=== PATIENT | male | born 1970 | race African-American/Black ===

== ENCOUNTER 2017-06-24 14:28 | Inpatient (IN) | payer OTHER ==
[2017-06-24 15:13] VITALS: BMI 21.6
--- NOTE | 2017-06-24 20:51 | HP ---
CIWA Score - CIWA Score Nausea/Vomitin Muscle Tremors: 3 Anxiety: 3 Agitation: 2 Paroxysmal Sweats: 2 Orientation: 0-Oriented Tacttile Disturbances: 2-Mild Itch/Numbness/Burn Auditory Disturbances: 2-Mild Harshness/Frighten Visual Disturbances: 2-Mild Sensitivity Headache: 3-Moderate CIWA-Ar Total Score: 22 Admission ROS BHS - HPI Chief Complaint: DEPENDENT ON ETOH, COCAINE AND MARIJUANA Allergies/Adverse Reactions: Allergies Allergy/AdvReac Type Severity Reaction Status Date / Time No Known Allergies Allergy Verified 06/24/17 20:15 History of Present Illness: THE PT. IS REQUESTING ADMISSION TO THE DETOX UNIT AND CAME FOR H AND PE Exam Limitations: No Limitations - Ebola screening Have you traveled outside of the country in the last 21 days: No (N) Have you had contact with anyone from an Ebola affected area: No Have you been sick,other than usual withdrawal symptoms: No Do you have a fever: No - Review of Systems Constitutional: Malaise, Weakness, Unexplained wgt Loss EENT: reports: See HPI Respiratory: reports: See HPI Cardiac: reports: See HPI, Syncope GI: reports: See HPI, Nausea, Vomiting, Abdominal cramping : reports: No Symptoms Reported, See HPI Musculoskeletal: reports: See HPI, Muscle Pain, Muscle Weakness Integumentary: reports: See HPI, Sweating Neuro: reports: See HPI, Headache, Tremors, Weakness Endocrine: reports: See HPI Hematology: reports: See HPI Psychiatric: reports: Judgement Intact, Orientated x3, Anxious, Depressed Patient History - Patient Medical History Hx Human Immunodeficiency Virus (HIV): Yes (IN 1999) Hx Hepatitis C: No Hx Depression: Yes (AND ANXIETY) Hx Suicide Attempt: Yes (X 2 (1985 AND 1997)) - Patient Surgical History Past Surgical History: Yes Hx Lung Surgery: Yes (RT. LUNG WAS REMOVED IN 2014 SEC. TO ASPERGILLOSIS) - Smoking Cessation Smoking history: Current every day smoker Have you smoked in the past 12 months: Yes Aproximately how many cigarettes per day: 1 Hx Chewing Tobacco Use: No Initiated information on smoking cessation: Yes 'Breaking Loose' booklet given: 06/24/17 - Substance & Tx. History Hx Alcohol Use: Yes Hx Substance Use: Yes Substance Use Type: Alcohol, Cocaine, Marijuana Hx Substance Use Treatment: Yes - Substances Abused Alcohol Route: Oral Frequency: Daily Amount used: LIQUOR 1-2 P/D AND BEER 6 CANS/D Age of first use: 11 Date of Last Use: 06/24/17 Cocaine Route: Smoking Frequency: Daily Amount used: 2 GRAMS/D Age of first use: 13 Date of Last Use: 06/24/17 Marijuana/Hashish Route: Smoking Frequency: Daily Amount used: 1/2 OZ/D Age of first use: 11 Date of Last Use: 06/24/17 Family Disease History - Family Disease History Family Disease History: Heart Disease: Mother (PPM PLACED; ETOH AND DRUG DEPENDENT), Other: Father (ETOH AND DRUGS - ) Admission Physical Exam S - Vital Signs Vital Signs: Vital Signs - 24 hr 06/24/17 15:08 Temperature 97.2 F L Pulse Rate 75 Respiratory 16 Rate Blood Pressure 133/90 - Physical General Appearance: Yes: No Apparent Distress, Appropriately Dressed, Thin, Tremorous, Anxious HEENTM: Yes: Hearing grossly Normal, Normocephalic, Normal Voice, HERIBERTO, Pharynx Normal Respiratory: Yes: Chest Non-Tender, No Respiratory Distress, No Accessory Muscle Use Neck: Yes: No masses,lesions,Nodules, Supple, Trachea in good position Breast: Yes: Breast Exam Deferred, Axillae without masses Cardiology: Yes: Regular Rhythm, Regular Rate, S1, S2 Abdominal: Yes: Normal Bowel Sounds, Non Tender, Flat Back: Yes: Normal Inspection Musculoskeletal: Yes: full range of Motion, Gait Steady, Muscle Pain, Muscle weakness Extremities: Yes: Normal Capillary Refill, Normal Range of Motion, Non-Tender, Tremors Neurological: Yes: director translation II-XII NML intact, Fully Oriented, Alert, Motor Strength 5/5, Normal Response, Depressed Affect Integumentary: Yes: Normal Color, Warm, Moist Lymphatic: Yes: Within Normal Limits - Addiitonal Findings: LEFT SIDE OF THE LUNG: VESICULAR BREATH SOUNDS, NO RALES, NO RHONCHI, NO WHEEZING++ RT. SIDE OF THE LUNG: VESICULAR BREATH SOUNDS HEARD ON THE BACK ONLY+ (HAD SURGERY AND PART OF THE LUNG WAS REMOVED) - Diagnostic (1) EtOH dependence Current Visit: Yes Status: Chronic Qualifiers: Substance use status: uncomplicated Qualified Code(s): F10.20 - Alcohol dependence, uncomplicated (2) Cocaine dependence Current Visit: Yes Status: Chronic Qualifiers: Substance use status: uncomplicated Qualified Code(s): F14.20 - Cocaine dependence, uncomplicated (3) Marijuana dependence Current Visit: Yes Status: Chronic (4) Anxiety and depression Current Visit: Yes Status: Chronic (5) AIDS Current Visit: Yes Status: Chronic (6) H/O pneumonectomy Current Visit: Yes Status: Chronic Cleared for Admission [facility] - Detox or Rehab [facility] Level of Care: Medically Managed Detox Regimen/Protocol: Librium S Breath Alcohol Content Breath Alcohol Content: 0 Urine Drug Screen - Results Drug Screen Negative: No Urine Drug Screen Results: THC-Marijuana, ALAN-Cocaine
[2017-06-24] MEDS ORDERED: MAGNESIUM HYDROX 2400MG/30ML ORAL SUSPENSION 30 ML CUP PO PRN (21:07)
[2017-06-24] MEDS ORDERED: IBUPROFEN 400 MG TABLET (FP) PO PRN (21:07)
[2017-06-24] MEDS ORDERED: chlordiazePOXIDE HCL 25 MG CAPSULE PO PRN (21:07)
[2017-06-24] MEDS ORDERED: LOPERAMIDE HCL 2 MG CAPSULE PO PRN (21:07)
[2017-06-24] MEDS ORDERED: MENTHOL/PHENOL 1 EACH UD MM PRN (21:07)
[2017-06-24] MEDS ORDERED: hydrOXYzine PAMOATE 25 MG CAPSULE (FP) PO PRN (21:07)
[2017-06-24] MEDS ORDERED: P-EPHED 60MG/TRIPROLIDI 2.5MG TABLET PO PRN (21:07)
[2017-06-24] MEDS ORDERED: chlordiazePOXIDE HCL 25 MG CAPSULE PO ONE (21:07)
[2017-06-24] MEDS ORDERED: MAGNESIUM CITRATE 300 ML BOTTLE PO PRN (21:07)
[2017-06-24] MEDS ORDERED: guaiFENesin/D-METHORPHAN HB 10 ML UNIT-DOSE CUPS PO PRN (21:07)
[2017-06-24] MEDS ORDERED: ACETAMINOPHEN 325 MG TABLET (FP) PO PRN (21:07)
[2017-06-24] MEDS ORDERED: MAG HYDROX/AL HYDROX/SIMETH 30 ML UNIT-DOSE CUP PO PRN (21:07)
[2017-06-24] MEDS ORDERED: NICOTINE POLACRILEX 2 MG GUM BC PRN (21:07)
[2017-06-24] MEDS ORDERED: EMTRICITABINE/TENOFOV ALAFENAM (DESCOVY) TABLET PO SCH (21:15)
[2017-06-24] MEDS ORDERED: MELATONIN 5 MG TABLETS PO PRN (22:00)
[2017-06-24] MEDS: RALTEGRAVIR POTASSIUM 400 MG TAB PO SCH (23:35)
[2017-06-24] MEDS: THIAMINE HCL 100 MG TABLET (FP) PO SCH (23:35)
[2017-06-24] MEDS: chlordiazePOXIDE HCL 25 MG CAPSULE PO SCH (23:39)
[2017-06-24] MEDS: EMTRICITABINE 200MG/TENOFOVIR 300MG PO SCH (23:39)
[2017-06-25 01:21] LABS: URINE APPEARANCE TURBID; URINE BILIRUBIN NEGATIVE (<2.0 mg/dL); URINE BLOOD NEGATIVE (NEGATIVE); URINE COLOR DKYELLOW; URINE GLUCOSE (UA) NEGATIVE (NEGATIVE); URINE KETONE NEGATIVE (NEGATIVE); URINE LEUK ESTERASE NEGATIVE (NEGATIVE); URINE NITRITE NEGATIVE (NEGATIVE); URINE PROTEIN NEGATIVE (NEGATIVE); URINE UROBILINOGEN NEGATIVE mg/dL (0.2-1.0)
[2017-06-25] MEDS: chlordiazePOXIDE HCL 25 MG CAPSULE PO SCH (06:34)
[2017-06-25] MEDS ORDERED: diazePAM 5 MG TABLET PO PRN (09:38)
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
[2017-06-25] MEDS: PRENATAL VITAMINS W/ FOLIC ACID TABLET (FP) PO SCH (10:16)
[2017-06-25] MEDS: diazePAM 5 MG TABLET PO SCH ×3 (10:16→22:08)
[2017-06-25] MEDS: RALTEGRAVIR POTASSIUM 400 MG TAB PO SCH ×2 (10:16→22:08)
[2017-06-25] MEDS: EMTRICITABINE 200MG/TENOFOVIR 300MG PO SCH (10:16)
[2017-06-25 10:42] LABS: HEMATOCRIT 37.6 % (35.4-49); HEMOGLOBIN 12.6 GM/dL (11.7-16.9); MCH 32.1 pg (25.7-33.7); MCHC 33.4 g/dl (32.0-35.9); MEAN CELL VOLUME 96.1 fl (80-96); PLATELET COUNT 203 K/MM3 (134-434); RBC 3.92 M/mm3 (4.00-5.60); RDW 13.9 % (11.9-15.9); WHITE BLOOD COUNT 4.1 K/mm3 (4.0-10.0)
[2017-06-25 10:55] LABS: CHLORIDE 106 mmol/L (98-107); POTASSIUM 4.2 mmol/L (3.5-5.1); SODIUM 140 mmol/L (136-145)
[2017-06-25 11:17] LABS: ALBUMIN 2.7 g/dl (3.4-5.0); ALK PHOS 110 U/L (45-117); ANION GAP 5 (8-16); BILIRUBIN,TOTAL 0.4 mg/dL (0.2-1.0); BLOOD UREA NITROGEN 14 mg/dL (7-18); CALCIUM 8.1 mg/dL (8.5-10.1); CO2 29 mmol/L (21-32); GLUCOSE,RANDOM 77 mg/dL (74-106); SGOT/AST 39 U/L (15-37); SGPT/ALT 55 U/L (12-78); TOT PROT 6.4 g/dl (6.4-8.2)
[2017-06-25] MEDS: SERTRALINE HCL 50 MG TABLET (FP) PO SCH (11:34)
[2017-06-25] MEDS ORDERED: PANTOPRAZOLE 40 MG TABLET (FP) PO ONE (15:00)
--- NOTE | 2017-06-25 18:04 | PN ---
[facility] CIWA - CIWA Score Nausea/Vomitin-No Nausea/No Vomiting Muscle Tremors: 2 Anxiety: 4-Mod. Anxious/Guarded Agitation: 5 Paroxysmal Sweats: 3 Orientation: 0-Oriented Tacttile Disturbances: 2-Mild Itch/Numbness/Burn Auditory Disturbances: 1-Very Mild Visual Disturbances: 0-None Headache: 0-None Present CIWA-Ar Total Score: 17 S Progress Note (SOAP) Subjective: Anxious, Sweating, Tremors. Objective: PATIENT A & O X 3, OBSERVED AMBULATING ON UNIT. NO ACUTE DISTRESS. 06/25/17 18:01 Vital Signs Temperature 97.6 F 06/25/17 17:13 Pulse Rate 81 06/25/17 17:13 Respiratory Rate 16 06/25/17 17:13 Blood Pressure 139/83 06/25/17 17:13 O2 Sat by Pulse Oximetry (%) Laboratory Tests 06/24/17 06/25/17 06/25/17 22:21 07:50 07:50 WBC 4.1 RBC 3.92 L Hgb 12.6 Hct 37.6 MCV 96.1 H MCH 32.1 MCHC 33.4 RDW 13.9 Plt Count 203 MPV 8.0 Sodium 140 Potassium 4.2 Chloride 106 Carbon Dioxide 29 Anion Gap 5 L BUN 14 Creatinine 1.0 Creat Clearance w eGFR > 60 Random Glucose 77 Calcium 8.1 L Total Bilirubin 0.4 AST 39 H ALT 55 Alkaline Phosphatase 110 Total Protein 6.4 Albumin 2.7 L Urine Color Dkyellow Urine Appearance Turbid Urine pH 6.0 Ur Specific [place] 1.018 Urine Protein Negative Urine Glucose (UA) Negative Urine Ketones Negative Urine Blood Negative Urine Nitrite Negative Urine Bilirubin Negative Urine Urobilinogen Negative Ur Leukocyte Esterase Negative RPR Titer 06/25/17 07:50 WBC RBC Hgb Hct MCV MCH MCHC RDW Plt Count MPV Sodium Potassium Chloride Carbon Dioxide Anion Gap BUN Creatinine Creat Clearance w eGFR Random Glucose Calcium Total Bilirubin AST ALT Alkaline Phosphatase Total Protein Albumin Urine Color Urine Appearance Urine pH Ur Specific [place] Urine Protein Urine Glucose (UA) Urine Ketones Urine Blood Urine Nitrite Urine Bilirubin Urine Urobilinogen Ur Leukocyte Esterase RPR Titer Nonreactive LABS NOTED. Assessment: 06/25/17 18:02 WITHDRAWAL SYMPTOMS. Plan: CONTINUE DETOX. INCREASE DAILY PO FLUID INTAKE. PATIENT REPORTS SIGNIFICANT DIFFICULTY IN SWALLOWING / DIGESTING LIBRUIM. AT PATIENT'S REQUEST, DETOX MEDICATION REGIMEN CHANGED TO VALIUM DETOX REGIMEN.
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
[2017-06-25] MEDS ORDERED: PATIENT'S OWN MEDICATION (NON-FORMULARY) (Zolpidem Tartrate [Ambien] 10 MG) PO SCH (22:00)
[2017-06-25] MEDS: THIAMINE HCL 100 MG TABLET (FP) PO SCH (22:08)
[2017-06-25] MEDS: QUEtiapine FUMARATE 100 MG TABLET (FP) PO SCH (22:08)
[2017-06-25] MEDS: ZOLPIDEM TARTRATE 10 MG TABLET (PARK CARE ONLY) PO PRN (22:08)
[2017-06-25] MEDS ORDERED: chlordiazePOXIDE HCL 25 MG CAPSULE PO SCH (23:00)
[2017-06-26] MEDS: diazePAM 5 MG TABLET PO SCH ×3 (07:05→22:06)
[2017-06-26] MEDS: PANTOPRAZOLE 40 MG TABLET (FP) PO SCH (07:05)
[2017-06-26] MEDS: RALTEGRAVIR POTASSIUM 400 MG TAB PO SCH ×2 (10:01→22:06)
[2017-06-26] MEDS: SERTRALINE HCL 50 MG TABLET (FP) PO SCH (10:01)
[2017-06-26] MEDS: EMTRICITABINE 200MG/TENOFOVIR 300MG PO SCH (10:01)
[2017-06-26] MEDS: PRENATAL VITAMINS W/ FOLIC ACID TABLET (FP) PO SCH (10:02)
--- NOTE | 2017-06-26 14:38 | PN ---
[facility] CIWA - CIWA Score Nausea/Vomitin Muscle Tremors: 3 Anxiety: 3 Agitation: 3 Paroxysmal Sweats: 3 Orientation: 0-Oriented Tacttile Disturbances: 1-Very Mild Itch/Numbness Auditory Disturbances: 0-None Visual Disturbances: 0-None Headache: 1-Very Mild CIWA-Ar Total Score: 17 [facility] Progress Note (SOAP) Subjective: Diarrhea, sweating, anxious Objective: 06/26/17 14:36 Last Vital Signs Temp Pulse Resp BP Pulse Ox 97.2 F L 81 18 141/84 06/26/17 13:39 06/26/17 13:39 06/26/17 13:39 06/26/17 13:39 Laboratory Tests 06/24/17 06/25/17 06/25/17 22:21 07:50 07:50 WBC 4.1 RBC 3.92 L Hgb 12.6 Hct 37.6 MCV 96.1 H MCH 32.1 MCHC 33.4 RDW 13.9 Plt Count 203 MPV 8.0 Sodium 140 Potassium 4.2 Chloride 106 Carbon Dioxide 29 Anion Gap 5 L BUN 14 Creatinine 1.0 Creat Clearance w eGFR > 60 Random Glucose 77 Calcium 8.1 L Total Bilirubin 0.4 AST 39 H ALT 55 Alkaline Phosphatase 110 Total Protein 6.4 Albumin 2.7 L Urine Color Dkyellow Urine Appearance Turbid Urine pH 6.0 Ur Specific [place] 1.018 Urine Protein Negative Urine Glucose (UA) Negative Urine Ketones Negative Urine Blood Negative Urine Nitrite Negative Urine Bilirubin Negative Urine Urobilinogen Negative Ur Leukocyte Esterase Negative RPR Titer 06/25/17 07:50 WBC RBC Hgb Hct MCV MCH MCHC RDW Plt Count MPV Sodium Potassium Chloride Carbon Dioxide Anion Gap BUN Creatinine Creat Clearance w eGFR Random Glucose Calcium Total Bilirubin AST ALT Alkaline Phosphatase Total Protein Albumin Urine Color Urine Appearance Urine pH Ur Specific [place] Urine Protein Urine Glucose (UA) Urine Ketones Urine Blood Urine Nitrite Urine Bilirubin Urine Urobilinogen Ur Leukocyte Esterase RPR Titer Nonreactive Labs reviewed Assessment: 06/26/17 14:37 Withdrawal symptoms Plan: Continue detox Encouraged PO hydration (water)
[2017-06-26] MEDS: ZOLPIDEM TARTRATE 10 MG TABLET (PARK CARE ONLY) PO PRN (22:06)
[2017-06-26] MEDS: QUEtiapine FUMARATE 100 MG TABLET (FP) PO SCH (22:06)
[2017-06-26] MEDS: THIAMINE HCL 100 MG TABLET (FP) PO SCH (22:06)
[2017-06-26] MEDS ORDERED: chlordiazePOXIDE 5 MG CAPSULE PO SCH (23:00)
[2017-06-27] MEDS: PANTOPRAZOLE 40 MG TABLET (FP) PO SCH (05:57)
--- NOTE | 2017-06-27 09:59 | PN ---
[facility] Progress Note (SOAP) Subjective: C/O ANXIETY,AGITATION, HEADACHE,FATIGUE. Objective: 06/27/17 09:58 Vital Signs 06/27/17 06/27/17 06/27/17 03:30 06:03 06:30 Temperature 96 F L Pulse Rate 72 Respiratory 18 18 18 Rate Blood Pressure 119/75 06/27/17 09:16 Temperature 97.0 F L Pulse Rate 79 Respiratory 18 Rate Blood Pressure 133/89 Laboratory Tests 06/24/17 06/25/17 06/25/17 22:21 07:50 07:50 WBC 4.1 RBC 3.92 L Hgb 12.6 Hct 37.6 MCV 96.1 H MCH 32.1 MCHC 33.4 RDW 13.9 Plt Count 203 MPV 8.0 Sodium 140 Potassium 4.2 Chloride 106 Carbon Dioxide 29 Anion Gap 5 L BUN 14 Creatinine 1.0 Creat Clearance w eGFR > 60 Random Glucose 77 Calcium 8.1 L Total Bilirubin 0.4 AST 39 H ALT 55 Alkaline Phosphatase 110 Total Protein 6.4 Albumin 2.7 L Urine Color Dkyellow Urine Appearance Turbid Urine pH 6.0 Ur Specific [place] 1.018 Urine Protein Negative Urine Glucose (UA) Negative Urine Ketones Negative Urine Blood Negative Urine Nitrite Negative Urine Bilirubin Negative Urine Urobilinogen Negative Ur Leukocyte Esterase Negative RPR Titer 06/25/17 07:50 WBC RBC Hgb Hct MCV MCH MCHC RDW Plt Count MPV Sodium Potassium Chloride Carbon Dioxide Anion Gap BUN Creatinine Creat Clearance w eGFR Random Glucose Calcium Total Bilirubin AST ALT Alkaline Phosphatase Total Protein Albumin Urine Color Urine Appearance Urine pH Ur Specific [place] Urine Protein Urine Glucose (UA) Urine Ketones Urine Blood Urine Nitrite Urine Bilirubin Urine Urobilinogen Ur Leukocyte Esterase RPR Titer Nonreactive Assessment: 06/27/17 09:58 WITHDRAWAL SX Plan: CONTINUE DETOX INCREASE PO FLUIDS
[2017-06-27] MEDS: RALTEGRAVIR POTASSIUM 400 MG TAB PO SCH ×2 (10:06→22:02)
[2017-06-27] MEDS: PRENATAL VITAMINS W/ FOLIC ACID TABLET (FP) PO SCH (10:06)
[2017-06-27] MEDS: diazePAM 5 MG TABLET PO SCH ×2 (10:06→22:03)
[2017-06-27] MEDS: SERTRALINE HCL 50 MG TABLET (FP) PO SCH (10:06)
[2017-06-27] MEDS: EMTRICITABINE 200MG/TENOFOVIR 300MG PO SCH (10:06)
[2017-06-27] MEDS: ZOLPIDEM TARTRATE 10 MG TABLET (PARK CARE ONLY) PO PRN (22:02)
[2017-06-27] MEDS: QUEtiapine FUMARATE 100 MG TABLET (FP) PO SCH (22:02)
[2017-06-27] MEDS: THIAMINE HCL 100 MG TABLET (FP) PO SCH (22:02)
[2017-06-27] MEDS ORDERED: chlordiazePOXIDE HCL 10 MG CAPSULE PO SCH (23:00)
--- NOTE | 2017-06-28 00:51 | EKG ---
Test Reason : Blood Pressure : / mmHG Vent. Rate : 080 BPM Atrial Rate : 080 BPM P-R Int : 164 ms QRS Dur : 080 ms QT Int : 398 ms P-R-T Axes : 052 058 049 degrees QTc Int : 459 ms NORMAL SINUS RHYTHM NORMAL ECG NO PREVIOUS ECGS AVAILABLE Confirmed by WAGNER WILLIS MD ([id number]) on 06/28/2017 12:51:25 AM Referred By: Confirmed By:WAGNER WILLIS MD
[2017-06-28] MEDS: PANTOPRAZOLE 40 MG TABLET (FP) PO SCH (05:52)
[2017-06-28] MEDS ORDERED: diazePAM 5 MG TABLET PO SCH (10:00)
--- NOTE | 2017-06-28 10:08 | PN ---
S Progress Note (SOAP) Subjective: DETOX COMPLETED. ALERT O X 3. NAD. PT REFERRED TO REHAB [address] [place] [address] TODAY. REPORTS PRIMARY CARE WITH DR. MOTA AT [facility]/[address] [place] [address]. Objective: 06/28/17 10:06 Last Vital Signs Temp Pulse Resp BP Pulse Ox 96.7 F L 74 18 101/72 06/28/17 06:17 06/28/17 06:17 06/28/17 06:17 06/28/17 06:17 Laboratory Tests 06/24/17 06/25/17 06/25/17 22:21 07:50 07:50 WBC 4.1 RBC 3.92 L Hgb 12.6 Hct 37.6 MCV 96.1 H MCH 32.1 MCHC 33.4 RDW 13.9 Plt Count 203 MPV 8.0 Sodium 140 Potassium 4.2 Chloride 106 Carbon Dioxide 29 Anion Gap 5 L BUN 14 Creatinine 1.0 Creat Clearance w eGFR > 60 Random Glucose 77 Calcium 8.1 L Total Bilirubin 0.4 AST 39 H ALT 55 Alkaline Phosphatase 110 Total Protein 6.4 Albumin 2.7 L Urine Color Dkyellow Urine Appearance Turbid Urine pH 6.0 Ur Specific [place] 1.018 Urine Protein Negative Urine Glucose (UA) Negative Urine Ketones Negative Urine Blood Negative Urine Nitrite Negative Urine Bilirubin Negative Urine Urobilinogen Negative Ur Leukocyte Esterase Negative RPR Titer 06/25/17 07:50 WBC RBC Hgb Hct MCV MCH MCHC RDW Plt Count MPV Sodium Potassium Chloride Carbon Dioxide Anion Gap BUN Creatinine Creat Clearance w eGFR Random Glucose Calcium Total Bilirubin AST ALT Alkaline Phosphatase Total Protein Albumin Urine Color Urine Appearance Urine pH Ur Specific [place] Urine Protein Urine Glucose (UA) Urine Ketones Urine Blood Urine Nitrite Urine Bilirubin Urine Urobilinogen Ur Leukocyte Esterase RPR Titer Nonreactive Assessment: 06/28/17 10:06 MEDICALLY STABLE Plan: D/C PT TODAY TO REHAB.
--- NOTE | 2017-06-28 10:13 | DS ---
[facility] Detox Discharge Summary Admission Date: 06/24/17 Discharge Date: 06/28/17 - History Present History: Alcohol Dependence, Cannabis Dependence, Cocaine Dependence Additional Comments: DETOX COMPLETED. ALERT O X 3. NAD. PT REPORTS PRIMARY CARE WITH SVETLANA DIAMOND AT [facility]/[address] [place]. PT TO CONTINUE AFTERCARE ON [facility] TODAY. Pertinent Past History: PLEASE SEE DX BELOW - Physical Exam Results Vital Signs: Vital Signs Temperature 96.7 F L 06/28/17 06:17 Pulse Rate 74 06/28/17 06:17 Respiratory Rate 18 06/28/17 06:17 Blood Pressure 101/72 06/28/17 06:17 O2 Sat by Pulse Oximetry (%) Pertinent Admission Physical Exam Findings: WITHDRAWAL SX Vital Signs 06/28/17 06/28/17 03:30 06:17 Temperature 96.7 F L Pulse Rate 74 Respiratory 18 18 Rate Blood Pressure 101/72 Laboratory Tests 06/24/17 06/25/17 06/25/17 22:21 07:50 07:50 WBC 4.1 RBC 3.92 L Hgb 12.6 Hct 37.6 MCV 96.1 H MCH 32.1 MCHC 33.4 RDW 13.9 Plt Count 203 MPV 8.0 Sodium 140 Potassium 4.2 Chloride 106 Carbon Dioxide 29 Anion Gap 5 L BUN 14 Creatinine 1.0 Creat Clearance w eGFR > 60 Random Glucose 77 Calcium 8.1 L Total Bilirubin 0.4 AST 39 H ALT 55 Alkaline Phosphatase 110 Total Protein 6.4 Albumin 2.7 L Urine Color Dkyellow Urine Appearance Turbid Urine pH 6.0 Ur Specific [place] 1.018 Urine Protein Negative Urine Glucose (UA) Negative Urine Ketones Negative Urine Blood Negative Urine Nitrite Negative Urine Bilirubin Negative Urine Urobilinogen Negative Ur Leukocyte Esterase Negative RPR Titer 06/25/17 07:50 WBC RBC Hgb Hct MCV MCH MCHC RDW Plt Count MPV Sodium Potassium Chloride Carbon Dioxide Anion Gap BUN Creatinine Creat Clearance w eGFR Random Glucose Calcium Total Bilirubin AST ALT Alkaline Phosphatase Total Protein Albumin Urine Color Urine Appearance Urine pH Ur Specific [place] Urine Protein Urine Glucose (UA) Urine Ketones Urine Blood Urine Nitrite Urine Bilirubin Urine Urobilinogen Ur Leukocyte Esterase RPR Titer Nonreactive - Treatment Hospital Course: Detox Protocol Followed, Detoxed Safely, Responded well, Discharged Condition Good, Rehab Referral Accepted Patient has Accepted a Rehab Referral to: [facility] - Medication Discharge Medications: Ambulatory Orders Emtricitabine/Tenofov Alafenam [Descovy 200-25 mg Tablet (Nf)] 1 each PO DAILY 06/24/17 Emtricitabine/Tenofovir [Truvada] 1 tab PO DAILY 06/24/17 Quetiapine Fumarate [Seroquel -] 200 mg PO HS 06/24/17 Raltegravir [Isentress -] 400 mg PO DAILY 06/24/17 Sertraline HCl [Zoloft -] 50 mg PO DAILY 06/24/17 Zolpidem Tartrate [Ambien] 10 mg PO HS 06/24/17 Quetiapine Fumarate [Seroquel] 100 mg PO HS #30 tablet 06/28/17 Sertraline HCl [Zoloft -] 50 mg PO DAILY #30 tablet 06/28/17 - Diagnosis (1) Alcohol dependence with uncomplicated withdrawal Current Visit: Yes Status: Acute (2) GERD (gastroesophageal reflux disease) Current Visit: Yes Status: Chronic Qualifiers: Esophagitis presence: esophagitis presence not specified Qualified Code(s) : K21.9 - Gastro-esophageal reflux disease without esophagitis (3) AIDS Current Visit: Yes Status: Chronic (4) Nicotine dependence Current Visit: Yes Status: Acute Qualifiers: Nicotine product type: cigarettes Substance use status: in withdrawal Qualified Code(s): F17.213 - Nicotine dependence, cigarettes, with withdrawal (5) Cocaine dependence Current Visit: Yes Status: Acute Qualifiers: Substance use status: uncomplicated Qualified Code(s): F14.20 - Cocaine dependence, uncomplicated (6) Cannabis dependence, uncomplicated Current Visit: Yes Status: Acute - AMA Did Patient Leave Against Medical Advice: No
[2017-06-28] MEDS: PRENATAL VITAMINS W/ FOLIC ACID TABLET (FP) PO SCH (10:16)
[2017-06-28] MEDS: RALTEGRAVIR POTASSIUM 400 MG TAB PO SCH (10:16)
[2017-06-28] MEDS: SERTRALINE HCL 50 MG TABLET (FP) PO SCH (10:16)
[2017-06-28] MEDS: EMTRICITABINE 200MG/TENOFOVIR 300MG PO SCH (10:17)
[2017-06-28 13:16] VITALS: BP 121/81; PULSE 81; TEMP 97.1
== END 2017-06-28 15:12 | disposition other institution (70) | DRG 774 ==
LOC: YASAS 14:28 → Y3N 21:24
PROVIDERS: ADMIT Internal Medicine; ATTEND Internal Medicine
PROC: HZ2ZZZZ Detoxification Services for Substance Abuse Treatment (ICD-10-PCS; principal; 2017-06-24)
DX: F10.230 Alcohol dependence with withdrawal, uncomplicated (principal); F14.20 Cocaine dependence, uncomplicated; F17.213 Nicotine dependence, cigarettes, with withdrawal; F25.9 Schizoaffective disorder, unspecified; F43.10 Post-traumatic stress disorder, unspecified; F41.8 Other specified anxiety disorders; B20 Human immunodeficiency virus [HIV] disease; Z90.2 Acquired absence of lung [part of]; Z91.5 Personal history of self-harm; K21.9 Gastro-esophageal reflux disease without esophagitis
CPT/HCPCS: 36415; 80053; 81003; 85027; 86593; 93005; 93010

== ENCOUNTER 2017-06-28 15:20 | Inpatient (IN) | payer OTHER ==
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
[2017-06-28] MEDS ORDERED: guaiFENesin/D-METHORPHAN HB 10 ML UNIT-DOSE CUPS PO PRN (16:23)
[2017-06-28] MEDS ORDERED: MAG HYDROX/AL HYDROX/SIMETH 30 ML UNIT-DOSE CUP PO PRN (16:23)
[2017-06-28] MEDS ORDERED: MAGNESIUM CITRATE 300 ML BOTTLE PO PRN (16:23)
[2017-06-28] MEDS ORDERED: MAGNESIUM HYDROX 2400MG/30ML ORAL SUSPENSION 30 ML CUP PO PRN (16:23)
[2017-06-28] MEDS ORDERED: IBUPROFEN 400 MG TABLET (FP) PO PRN (16:23)
[2017-06-28] MEDS ORDERED: P-EPHED 60MG/TRIPROLIDI 2.5MG TABLET PO PRN (16:23)
[2017-06-28] MEDS ORDERED: ACETAMINOPHEN 325 MG TABLET (FP) PO PRN (16:23)
[2017-06-28] MEDS ORDERED: NICOTINE POLACRILEX 2 MG GUM BUC PRN (16:23)
[2017-06-28] MEDS ORDERED: MENTHOL/PHENOL 1 EACH UD MM PRN (16:23)
--- NOTE | 2017-06-28 17:05 | HP ---
[facility] Re[facility] Assess/Revision - Admission History Admitted to Rehab from: [facility] Date of Admission to Rehab: 06/28/17 - Vital signs Vital Signs: Vital Signs Period Temp Pulse Resp BP Sys/Elam Pulse Ox Last 24 Hr 98.8 F 87 18 142/86 - Findings Detox History & Physical reviewed: Yes Concur with findings: Yes Comments/Additional Findings: PT COMPLETED DETOX TODAY ON . ALERT O X 3. NAD. PLAN: ADMIT TO [facility] TODAY Inpatient Rehab Admission - Initial Determination Are CD services needed?: Yes Free of communicable disease: Yes Not in need of hospitalization: Yes - Rehab Admission Criteria Patient is meeting Inpatient Rehab admission criteria:: Yes
[2017-06-28] MEDS: QUEtiapine FUMARATE 100 MG TABLET (FP) PO SCH (21:14)
[2017-06-28] MEDS: RALTEGRAVIR POTASSIUM 400 MG TAB PO SCH (21:14)
[2017-06-28] MEDS: THIAMINE HCL 100 MG TABLET (FP) PO SCH (21:14)
[2017-06-28] MEDS: MELATONIN 5 MG TABLETS PO PRN (21:15)
[2017-06-28] MEDS: NICOTINE 14 MG/24 HOURS TOPICAL PATCH TD SCH (21:16)
[2017-06-28] MEDS ORDERED: RALTEGRAVIR POTASSIUM 400 MG TAB PO SCH (22:00)
[2017-06-29] MEDS: EMTRICITABINE 200MG/TENOFOVIR 300MG PO SCH (10:23)
[2017-06-29] MEDS: PRENATAL VITAMINS W/ FOLIC ACID TABLET (FP) PO SCH (10:23)
[2017-06-29] MEDS: NICOTINE 14 MG/24 HOURS TOPICAL PATCH TD SCH (10:23)
[2017-06-29] MEDS: RALTEGRAVIR POTASSIUM 400 MG TAB PO SCH ×2 (10:23→21:08)
[2017-06-29] MEDS: SERTRALINE HCL 50 MG TABLET (FP) PO SCH (10:23)
[2017-06-29] MEDS: hydrOXYzine PAMOATE 50 MG CAPSULE (FP) PO PRN (10:24)
--- NOTE | 2017-06-29 11:23 | PN ---
[facility] Progress Note Note: patient was seen c/o insomnia, was on Ambien, Melotonin not effective, will add BElsomra 10 mg po hs, monitor progress as needed.
[2017-06-29] MEDS: THIAMINE HCL 100 MG TABLET (FP) PO SCH (21:08)
[2017-06-29] MEDS: QUEtiapine FUMARATE 100 MG TABLET (FP) PO SCH (21:08)
[2017-06-29] MEDS: SUVOREXANT 10 MG TABLET PO SCH (21:08)
[2017-06-30] MEDS: PRENATAL VITAMINS W/ FOLIC ACID TABLET (FP) PO SCH (09:59)
[2017-06-30] MEDS: RALTEGRAVIR POTASSIUM 400 MG TAB PO SCH ×2 (09:59→21:14)
[2017-06-30] MEDS: SERTRALINE HCL 50 MG TABLET (FP) PO SCH (09:59)
[2017-06-30] MEDS: NICOTINE 14 MG/24 HOURS TOPICAL PATCH TD SCH (09:59)
[2017-06-30] MEDS: EMTRICITABINE 200MG/TENOFOVIR 300MG PO SCH (09:59)
[2017-06-30] MEDS: hydrOXYzine PAMOATE 50 MG CAPSULE (FP) PO PRN ×2 (10:00→21:15)
--- NOTE | 2017-06-30 13:24 | PN ---
[facility] Progress Note Note: Vital Signs Temperature 97.9 F 06/30/17 06:59 Pulse Rate 72 06/30/17 06:59 Respiratory Rate 16 06/30/17 06:59 Blood Pressure 136/93 06/30/17 06:59 O2 Sat by Pulse Oximetry (%) Patient asymptomatic, x-ray review. reports will follow up with PCP regarding HIV tx. continue to monitor
[2017-06-30] MEDS: QUEtiapine FUMARATE 100 MG TABLET (FP) PO SCH (21:14)
[2017-06-30] MEDS: SUVOREXANT 10 MG TABLET PO SCH (21:14)
[2017-06-30] MEDS: THIAMINE HCL 100 MG TABLET (FP) PO SCH (21:14)
[2017-07-01] MEDS: NICOTINE 14 MG/24 HOURS TOPICAL PATCH TD SCH (09:39)
[2017-07-01] MEDS: SERTRALINE HCL 50 MG TABLET (FP) PO SCH (09:39)
[2017-07-01] MEDS: RALTEGRAVIR POTASSIUM 400 MG TAB PO SCH ×2 (09:39→21:05)
[2017-07-01] MEDS: EMTRICITABINE 200MG/TENOFOVIR 300MG PO SCH (09:39)
[2017-07-01] MEDS: PRENATAL VITAMINS W/ FOLIC ACID TABLET (FP) PO SCH (09:39)
[2017-07-01] MEDS: hydrOXYzine PAMOATE 50 MG CAPSULE (FP) PO PRN ×2 (09:40→21:06)
[2017-07-01] MEDS: QUEtiapine FUMARATE 100 MG TABLET (FP) PO SCH (21:04)
[2017-07-01] MEDS: SUVOREXANT 10 MG TABLET PO SCH (21:04)
[2017-07-01] MEDS: THIAMINE HCL 100 MG TABLET (FP) PO SCH (21:05)
[2017-07-02] MEDS: EMTRICITABINE 200MG/TENOFOVIR 300MG PO SCH (11:20)
[2017-07-02] MEDS: SERTRALINE HCL 50 MG TABLET (FP) PO SCH (11:20)
[2017-07-02] MEDS: LOPERAMIDE HCL 2 MG CAPSULE PO PRN ×2 (11:20→22:32)
[2017-07-02] MEDS: PRENATAL VITAMINS W/ FOLIC ACID TABLET (FP) PO SCH (11:21)
[2017-07-02] MEDS: RALTEGRAVIR POTASSIUM 400 MG TAB PO SCH ×2 (11:21→21:24)
[2017-07-02] MEDS: NICOTINE 14 MG/24 HOURS TOPICAL PATCH TD SCH (11:21)
[2017-07-02] MEDS ORDERED: ONDANSETRON *ODT* 4 MG TABLET SL PRN (18:56)
--- NOTE | 2017-07-02 18:59 | PN ---
[facility] Progress Note Note: nausea,vomiting once time,zofran 4 mgs sl now and prn q 6hrs,close monitoring
[2017-07-02] MEDS: SUVOREXANT 10 MG TABLET PO SCH (21:24)
[2017-07-02] MEDS: hydrOXYzine PAMOATE 50 MG CAPSULE (FP) PO PRN (21:24)
[2017-07-02] MEDS: QUEtiapine FUMARATE 100 MG TABLET (FP) PO SCH (21:25)
[2017-07-02] MEDS: THIAMINE HCL 100 MG TABLET (FP) PO SCH (21:25)
[2017-07-03] MEDS: MELATONIN 5 MG TABLETS PO PRN (01:06)
--- NOTE | 2017-07-03 03:33 | PN ---
[facility] Progress Note Note: ASKED TO SEE CLIENT FOR C/O N/V, AND UNWITNESSED DIARRHEA X 1 DAY. CLIENT STATES HE FEELS BETTER AFTER TAKING ZOFRAN SL EARLIER. DENIES N/V SINCE BUT HIS STOMACH IS FEELING "FUNNY" AND GASSY. REPORTS WATERY DIARRHEA BUT IS REFUSING TO TAKE THE IMODIUM. DENIES BLOOD IN STOOL, SOB, C.P., DIZZINESS, FEVER OR CHILLS. Vital Signs - 24 hr 07/03/17 07/03/17 07/03/17 00:30 03:30 03:40 Temperature 98.2 F Pulse Rate 86 Respiratory 18 18 18 Rate Blood Pressure 105/80 CLIENT WAS SEEN AMBULATING FROM DINING ROOM IN NOT ACUTE DISTRESS GENERAL: AWAKE, ALERT X3 NAD HEENT: NCAT, PERRLA, EOMI ABD: SOFT, NT, ND, NO GAURDING/REBOUNDING SKIN: WARM, DRY, NL TUGOR A- DIARRHEA P- CLIENT WAS SEEN BY THIS PROVIDER EARLIER AND D/W CLIENT ABOUT COMPLYING WITH MEDICATIONS ORDERED FOR HIS SX'S AND TO ALLOW STAFF TO WITNESS DIARRHEA. SHOULD SX'S CONT OR WORSEN WILL TRANSFER OUT TO [facility] FOR FURTHER EVAL. CLIENT VERBALIZED UNDERSTANDING. CONT PO HYDRATION WITH CLEAR LIQUIDS AND ICE CHIPS ZOFRAN, IMODIUM, MYLANTA FOR REPORTED SX'S NOW CLIENT WANTS TO EVALUATED IN THE ER "SOMETHING IS REALLY WRONG WITH MY STOMACH. I NEED FOR IT TO BE CHECKED OUT" TRANSFER CLIENT TO [facility] FOR EVAL REPORT GIVEN TO DR. RAPHAEL
[2017-07-03 03:41] VITALS: BP 105/80; PULSE 86; TEMP 98.2
== END 2017-07-03 09:51 | disposition short-term general hospital (02) | DRG 772 ==
LOC: YASAS 15:20 → Y5N 15:21
PROVIDERS: ADMIT Psychiatry & Neurology Psychiatry; ATTEND Psychiatry & Neurology Psychiatry
PROC: HZ42ZZZ Group Counseling for Substance Abuse Treatment, Cognitive-Behavioral (ICD-10-PCS; principal; 2017-06-28)
DX: F10.20 Alcohol dependence, uncomplicated (principal); F14.20 Cocaine dependence, uncomplicated; F17.213 Nicotine dependence, cigarettes, with withdrawal; F43.10 Post-traumatic stress disorder, unspecified; F25.9 Schizoaffective disorder, unspecified; Z21 Asymptomatic human immunodeficiency virus [HIV] infection status; Z86.19 Personal history of other infectious and parasitic diseases; Z90.2 Acquired absence of lung [part of]; R11.2 Nausea with vomiting, unspecified; R19.7 Diarrhea, unspecified
CPT/HCPCS: 71046-TC-FY; Q0162

== ENCOUNTER 2017-07-03 04:31 | Inpatient (IN) | payer OTHER ==
--- NOTE | 2017-07-03 04:44 | PDOC ---
History of Present Illness - General Chief Complaint: Pain Stated Complaint: ABDOMINAL PAIN Time Seen by Provider: 07/03/17 04:44 - History of Present Illness Initial Comments: 47 year old male with PMH of HIV and polysubstance abuse (cocaine, THC, and EtOH ) presenting with nausea, vomiting, and diarrhea for the past day. Describes the diarrhea as malodorous, floating in quality, and brown to green in color. He has also had NBNB vomiting as well. Denies fevers, chills, chest pain, chills , SOB, cough, or other symptoms. 07/03/17 05:13 Past History - Past Medical History Allergies/Adverse Reactions: Allergies Allergy/AdvReac Type Severity Reaction Status Date / Time No Known Allergies Allergy Verified 06/28/17 15:56 Home Medications: Ambulatory Orders Emtricitabine/Tenofovir [Truvada] 1 tab PO DAILY 06/24/17 Quetiapine Fumarate [Seroquel -] 200 mg PO HS 06/24/17 Raltegravir [Isentress -] 400 mg PO BID 06/24/17 Zolpidem Tartrate [Ambien] 10 mg PO HS 06/24/17 Sertraline HCl [Zoloft -] 50 mg PO DAILY #30 tablet 06/28/17 Asthma: No Cardiac Disorders: No COPD: No Diabetes: No GI Disorders: No Disorders: No HTN: No Kidney Stones: No Seizures: No - Surgical History Abdominal Surgery: No Appendectomy: No Cardiac Surgery: No Cholecystectomy: No Lung Surgery: Yes (RT. LUNG WAS REMOVED IN 2014 SEC. TO ASPERGILLOSIS) Neurologic Surgery: No Orthopedic Surgery: No - Reproductive History Testicular Surgery: No - Suicide/Smoking/Psychosocial Hx Smoking History: Current every day smoker Have you smoked in the past 12 months: Yes Number of Cigarettes Smoked Daily: 1 'Breaking Loose' booklet given: 06/24/17 Hx Alcohol Use: Yes (age of first use 11, daily liquor 1-2 p daily, beer 6 cans daily) Drug/Substance Use Hx: Yes Substance Use Type: Cocaine (2 gr), Marijuana (daily use) Hx Substance Use Treatment: Yes Review of Systems - Review of Systems Constitutional: No: Chills, Diaphoresis, Fever, Loss of Appetite HEENTM: No: Blurred Vision, Tearing Respiratory: No: Cough, Orthopnea, Shortness of Breath, Wheezing Cardiac (ROS): No: Chest Pain, Edema, Irregular Heart Rate ABD/GI: Yes: Diarrhea, Nausea, Vomiting. No: Constipated : No: Burning, Dysuria Musculoskeletal: No: Back Pain, Joint Pain Integumentary: No: Bruising, Lesions, Lumps, Pallor, Pruritus, Rash Neurological: No: Headache, Numbness, Paresthesia Hematologic/Lymphatic: No: Anemia, Blood Clots, Easy Bleeding *Physical Exam - Physical Exam General Appearance: Yes: Nourished, Appropriately Dressed. No: Apparent Distress HEENT: positive: EOMI, HERIBERTO, Normal ENT Inspection, Normal Voice Neck: positive: Trachea midline, Normal Thyroid, Supple. negative: Tender, Rigid Respiratory/Chest: positive: Lungs Clear, Normal Breath Sounds. negative: Chest Tender, Respiratory Distress, Accessory Muscle Use Cardiovascular: positive: Regular Rhythm, Regular Rate Gastrointestinal/Abdominal: positive: Flat, Soft, Increased Bowel Sounds. negative: Normal Bowel Sounds, Tender Lymphatic: negative: Adenopathy, Tenderness Musculoskeletal: positive: Normal Inspection. negative: CVA Tenderness, Decreased Range of Motion Extremity: positive: Normal Capillary Refill, Normal Inspection, Normal Range of Motion. negative: Tender Integumentary: positive: Normal Color, Dry, Warm Neurologic: positive: Fully Oriented, Alert, Normal Mood/Affect, Normal Response , Motor Strength 5/5. negative: mixing pan tender II-XII NML intact ED Treatment Course - LABORATORY CBC & Chemistry Diagram: 07/03/17 05:20 07/03/17 05:20 Medical Decision Making - Medical Decision Making 47 year old male with HIV and unknown CD4/ Viral load status because of medication non-compliance and poor health care follow up. Patient was given Zofran and IV fluids without relief of his symptoms with WNL WBC and chemistries. However, given ambiguity of his HIV status this diarrheal illness could be 2/2 an opportunistic infection so will admit patient for observational stay until resolution/ control of his symptoms. His PCP is a new physician at [facility]. Patient signed out to Dr. Henson in stable condition pending call back from hospitalist for admission. 07/03/17 06:39 *DC/Admit/Observation/Transfer Diagnosis at time of Disposition: Nausea vomiting and diarrhea, AIDS EtOH dependence Qualifiers: Substance use status: uncomplicated Qualified Code(s): F10.20 - Alcohol dependence, uncomplicated - Discharge Dispostion Condition at time of disposition: Stable Decision to Admit order: Yes - Referrals - Patient Instructions - Post Discharge Activity
[2017-07-03 05:01] VITALS: BMI 22.0
[2017-07-03 05:43] LABS: BASO % 0.7 % (0-2.0); EOS % 1.5 % (0-4.5); HEMATOCRIT 41.6 % (35.4-49); HEMOGLOBIN 13.7 GM/dL (11.7-16.9); LYMPH % 14.4 % (8-40); MCH 31.3 pg (25.7-33.7); MCHC 32.9 g/dl (32.0-35.9); MEAN CELL VOLUME 95.4 fl (80-96); NEUT % 74.4 % (42.8-82.8); PLATELET COUNT 204 K/MM3 (134-434); RBC 4.36 M/mm3 (4.00-5.60); RDW 13.6 % (11.9-15.9); WHITE BLOOD COUNT 9.5 K/mm3 (4.0-10.0)
--- NOTE | 2017-07-03 05:51 | PDOC ---
Attending Attestation - Resident Resident Name: Charly Nance - ED Attending Attestation I have performed the following: I have examined & evaluated the patient, The case was reviewed & discussed with the resident, I agree w/resident's findings & plan, Exceptions are as noted - HPI HPI: 07/03/17 05:43 47 year old male c/ hx of HIV and polysubstance abuse sent from [address] [place] [address] for nausea, vomiting, diarrhea x 1 day. The patient has been in rehab for 2 weeks. Was off his HIV medications for several months. Restarted it two weeks ago. Does not know his most recent CD4 or VL counts. Was doing well. Thinks he may have eaten bad chicken. Today, has had numerous nausea, vomiting, diarrhea. Reports abdominal cramping but denies pain. No fevers, chills. - Physicial Exam PE: 07/03/17 05:51 GENERAL: Awake, alert, and fully oriented, in no acute distress. HEAD: No signs of trauma EYES: PERRLA, EOMI, sclera anicteric, conjunctiva clear ENT: Auricles normal inspection, hearing grossly normal, nares patent, NECK: Normal ROM, supple ABDOMEN: Soft, nontender, No guarding, no rebound. No masses EXTREMITIES: Normal range of motion, no edema. No clubbing or cyanosis. No cords, erythema, or tenderness NEUROLOGICAL: Cranial nerves II through XII grossly intact. Normal speech, normal gait SKIN: Warm, Dry, normal turgor, no rashes or lesions noted. - Medical Decision Making 07/03/17 05:51 Vital Signs Temp Pulse Resp BP Pulse Ox 97.8 F 80 16 109/73 98 07/03/17 04:38 07/03/17 04:38 07/03/17 04:38 07/03/17 04:38 07/03/17 04:38 47 year old male p/w nausea, vomiting, diarrhea. Possible differential includes gastroenteritis vs. food poisoning. However, given hx of HIV, should consider HIV related diarrhea illnesses. I agree with plan for stool cultures, blood cultures, labs, and IVF If workup is unremarkable, or patient is unable to tolerate PO, or with persistent diarrhea, will admit the patient to the hospital. 07/03/17 06:35 CBC, BMP 07/03/17 05:20 07/03/17 05:20 CMP Sodium 138 mmol/L (136-145) 07/03/17 05:20 Potassium 4.4 mmol/L (3.5-5.1) 07/03/17 05:20 Chloride 106 mmol/L (98-107) 07/03/17 05:20 Carbon Dioxide 25 mmol/L (21-32) 07/03/17 05:20 Anion Gap 7 (8-16) L 07/03/17 05:20 BUN 22 mg/dL (7-18) H D 07/03/17 05:20 Creatinine 1.1 mg/dL (0.7-1.3) 07/03/17 05:20 Creat Clearance w eGFR > 60 (>60) 07/03/17 05:20 Random Glucose 101 mg/dL (74-106) D 07/03/17 05:20 Calcium 8.5 mg/dL (8.5-10.1) 07/03/17 05:20 Total Bilirubin 0.4 mg/dL (0.2-1.0) 07/03/17 05:20 AST 43 U/L (15-37) H 07/03/17 05:20 ALT 82 U/L (12-78) H D 07/03/17 05:20 Alkaline Phosphatase 109 U/L (45-117) 07/03/17 05:20 Total Protein 8.0 g/dl (6.4-8.2) D 07/03/17 05:20 Albumin 3.4 g/dl (3.4-5.0) D 07/03/17 05:20
[2017-07-03 06:11] LABS: ALBUMIN 3.4 g/dl (3.4-5.0); ALK PHOS 109 U/L (45-117); ANION GAP 7 (8-16); BILIRUBIN,TOTAL 0.4 mg/dL (0.2-1.0); BLOOD UREA NITROGEN 22 mg/dL (7-18); CALCIUM 8.5 mg/dL (8.5-10.1); CHLORIDE 106 mmol/L (98-107); CO2 25 mmol/L (21-32); CREATININE 1.1 mg/dL (0.7-1.3); GLUCOSE,RANDOM 101 mg/dL (74-106); POTASSIUM 4.4 mmol/L (3.5-5.1); SGOT/AST 43 U/L (15-37); SGPT/ALT 82 U/L (12-78); SODIUM 138 mmol/L (136-145)
[2017-07-03] MEDS ORDERED: SODIUM CHLORIDE 1,000 ML IV STA ×2 (06:23→09:15)
[2017-07-03] MEDS ORDERED: ONDANSETRON 4 MG/2 ML VIAL IVPUSH ONE (06:37)
[2017-07-03] MEDS ORDERED: ONDANSETRON 4 MG/2 ML VIAL ONE (06:43)
[2017-07-03 06:56] LABS: URINE APPEARANCE SLCLOUDY; URINE BILIRUBIN NEGATIVE (<2.0 mg/dL); URINE COLOR YELLOW; URINE GLUCOSE (UA) NEGATIVE (NEGATIVE); URINE KETONE NEGATIVE (NEGATIVE); URINE LEUK ESTERASE TRACE (NEGATIVE); URINE NITRITE NEGATIVE (NEGATIVE); URINE PROTEIN NEGATIVE (NEGATIVE); URINE UROBILINOGEN NEGATIVE mg/dL (0.2-1.0)
[2017-07-03 07:08] LABS: EPI CELLS RARE /HPF (FEW); URINE HYALINE CAST 3 /lpf; URINE MUCUS RARE
[2017-07-03] MEDS ORDERED: QUEtiapine FUMARATE 200 MG TABLET PO ONE (07:08)
[2017-07-03] MEDS ORDERED: QUEtiapine FUMARATE 100 MG TABLET (FP) ONE (07:29)
[2017-07-03] MEDS ORDERED: QUEtiapine FUMARATE 100 MG TABLET (FP) PO ONE (07:30)
--- NOTE | 2017-07-03 07:49 | PDOC ---
*Physical Exam - Vital Signs Last Vital Signs Temp Pulse Resp BP Pulse Ox 97.8 F 80 16 109/73 97 07/03/17 04:38 07/03/17 04:38 07/03/17 04:38 07/03/17 04:38 07/03/17 07:09 ED Treatment Course - LABORATORY CBC & Chemistry Diagram: 07/03/17 05:20 07/03/17 05:20 - ADDITIONAL ORDERS Additional order review: Laboratory Results 07/03/17 07/03/17 07/03/17 06:40 05:27 05:20 Sodium 138 Potassium 4.4 Chloride 106 Carbon Dioxide 25 Anion Gap 7 L BUN 22 H D Creatinine 1.1 Creat Clearance w eGFR > 60 Random Glucose 101 D Calcium 8.5 Total Bilirubin 0.4 AST 43 H ALT 82 H D Alkaline Phosphatase 109 Total Protein 8.0 D Albumin 3.4 D Urine Color Yellow Urine Appearance Slcloudy Urine pH 5.0 Ur Specific [place] 1.030 Urine Protein Negative Urine Glucose (UA) Negative Urine Ketones Negative Urine Blood Negative Urine Nitrite Negative Urine Bilirubin Negative Urine Urobilinogen Negative Ur Leukocyte Esterase Trace Urine WBC (Auto) 4 Urine RBC (Auto) 1 Ur Epithelial Cells Rare Hyaline Casts 3 Urine Mucus Rare Stool Occult Blood Negative 07/03/17 05:20 RBC 4.36 MCV 95.4 MCHC 32.9 RDW 13.6 MPV 8.0 Neutrophils % 74.4 Lymphocytes % 14.4 Monocytes % 9.0 Eosinophils % 1.5 Basophils % 0.7 - Medications Given in the ED: ED Medications Discontinued Medications Generic Name Dose Route Start Last Admin Trade Name Freq PRN Reason Stop Dose Admin Sodium Chloride 1,000 mls @ 1,000 mls/hr 07/03/17 06:23 07/03/17 06:31 Normal Saline - IV 07/03/17 07:22 1,000 mls/hr ASDIR STA Administration Ondansetron HCl 4 mg 07/03/17 06:37 07/03/17 06:54 Zofran Injection IVPUSH 07/03/17 06:38 4 mg ONCE ONE Administration Quetiapine Fumarate 200 mg 07/03/17 07:30 07/03/17 07:33 Seroquel - PO 07/03/17 07:31 200 mg ONCE ONE Administration Medical Decision Making - Medical Decision Making 07/03/17 07:[address] Henriquez obs via Dr Peterson. *DC/Admit/Observation/Transfer Diagnosis at time of Disposition: Nausea vomiting and diarrhea, AIDS EtOH dependence Qualifiers: Substance use status: uncomplicated Qualified Code(s): F10.20 - Alcohol dependence, uncomplicated - Discharge Dispostion Condition at time of disposition: Stable Decision to Admit order: Yes - Referrals - Patient Instructions - Post Discharge Activity
--- NOTE | 2017-07-03 08:17 | HP ---
CHIEF COMPLAINT:nausea, vomiting, & diarrhea PCP:[facility] HISTORY OF PRESENT ILLNESS: 47M with history of HIV and polysubstance abuse, currently in [facility] for the past 2 weeks for drug rehabilitation presents top the hospital from [facility] for nausea, vomiting, diarrhea, Patient believes he may have food poisoning but no one else at [facility] got sick frm eating the food. He ate eggs for breakfast and chicken for both lunch and dinner. He states he has been having beige colored diarrhea although he told the ED green and brown. He also states he has been vomiting undigested food without blood or bile contents. he states he vomited about ten times.He has been belching and it smells like sulfur. He denies fever, chills, chest pain, shortness of breath, hematuria or dysuria. he has no other complaints. 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 PAST SURGICAL HISTORY:Right pnumonectomy Social History: Smoking:current smoker Alcohol:last drink 2 weeks ago Drugs: THC Cocaine last use 2 weeks ago Allergies No Known Allergies Allergy (Verified 06/28/17 15:56) HOME MEDICATIONS: Home Medications Medication Instructions Recorded Emtricitabine/Tenofovir [Truvada] 1 tab PO DAILY 06/24/17 Quetiapine Fumarate [Seroquel -] 200 mg PO HS 06/24/17 Raltegravir [Isentress -] 400 mg PO BID 06/24/17 Zolpidem Tartrate [Ambien] 10 mg PO HS 06/24/17 Sertraline HCl [Zoloft -] 50 mg PO DAILY #30 tablet 06/28/17 Hydroxyzine Pamoate 25 mg PO PRN 07/03/17 Thiamine HCl [B-1] 100 mg PO HS 07/03/17 REVIEW OF SYSTEMS CONSTITUTIONAL: Absent: fever, chills, diaphoresis, generalized weakness, malaise, loss of appetite, weight change HEENT: Absent: rhinorrhea, nasal congestion, throat pain, throat swelling, difficulty swallowing, mouth swelling, ear pain, eye pain, visual changes CARDIOVASCULAR: Absent: chest pain, syncope, palpitations, irregular heart rate, lightheadedness , peripheral edema RESPIRATORY: Absent: cough, shortness of breath, dyspnea with exertion, orthopnea, wheezing, stridor, hemoptysis GASTROINTESTINAL: Absent: abdominal pain, abdominal distension, constipation, melena, hematochezia Present: sulfur smelling belching, Nausea, Vomiting, Diarrhea, abdominal cramping GENITOURINARY: Absent: dysuria, frequency, urgency, hesitancy, hematuria, flank pain, genital pain MUSCULOSKELETAL: Absent: myalgia, arthralgia, joint swelling, back pain, neck pain SKIN: Absent: rash, itching, pallor HEMATOLOGIC/IMMUNOLOGIC: Absent: easy bleeding, easy bruising, lymphadenopathy, frequent infections ENDOCRINE: Absent: unexplained weight gain, unexplained weight loss, heat intolerance, cold intolerance NEUROLOGIC: Absent: headache, focal weakness or paresthesias, dizziness, unsteady gait, seizure, mental status changes, bladder or bowel incontinence PSYCHIATRIC: Absent: anxiety, depression, suicidal or homicidal ideation, hallucinations. PHYSICAL EXAMINATION Vital Signs - 24 hr 07/03/17 07/03/17 04:38 07:09 Temperature 97.8 F Pulse Rate 80 Respiratory 16 Rate Blood Pressure 109/73 O2 Sat by Pulse 98 97 Oximetry (%) GENERAL: Awake, alert, and fully oriented, in no acute distress. HEAD: Normal with no signs of trauma. EYES: Pupils equal, round and reactive to light, extraocular movements intact, sclera anicteric, conjunctiva clear EARS, NOSE, THROAT: Dry mucous membranes. NECK: Normal range of motion, supple without JVD LUNGS: Breath sounds clear to auscultation bilaterally. Righ base diminished breath sounds. No wheezes, and no crackles. No accessory muscle use. HEART: Regular rate and rhythm, normal S1 and S2 without murmur, rub or gallop. ABDOMEN: Soft, nontender, not distended, normoactive bowel sounds, no guarding, no rebound, no masses. MUSCULOSKELETAL: Normal range of motion at all joints. No CVA tenderness. UPPER EXTREMITIES: warm, well-perfused. No peripheral edema. LOWER EXTREMITIES: warm, well-perfused. No calf tenderness. No peripheral edema. NEUROLOGICAL: Cranial nerves II-XII grossly intact. Normal speech. PSYCHIATRIC: Cooperative. Good eye contact. Appropriate mood and affect. SKIN: Warm, dry, normal turgor, normal capillary refill. Laboratory Results - last 24 hr 07/03/17 07/03/17 07/03/17 05:20 05:20 05:27 WBC 9.5 D RBC 4.36 Hgb 13.7 Hct 41.6 MCV 95.4 MCH 31.3 MCHC 32.9 RDW 13.6 Plt Count 204 MPV 8.0 Neutrophils % 74.4 Lymphocytes % 14.4 Monocytes % 9.0 Eosinophils % 1.5 Basophils % 0.7 Nucleated RBC % 0 Sodium 138 Potassium 4.4 Chloride 106 Carbon Dioxide 25 Anion Gap 7 L BUN 22 H D Creatinine 1.1 Creat Clearance w eGFR > 60 Random Glucose 101 D Calcium 8.5 Total Bilirubin 0.4 AST 43 H ALT 82 H D Alkaline Phosphatase 109 Total Protein 8.0 D Albumin 3.4 D Urine Color Urine Appearance Urine pH Ur Specific [place] Urine Protein Urine Glucose (UA) Urine Ketones Urine Blood Urine Nitrite Urine Bilirubin Urine Urobilinogen Ur Leukocyte Esterase Urine WBC (Auto) Urine RBC (Auto) Ur Epithelial Cells Hyaline Casts Urine Mucus Stool Occult Blood Negative 07/03/17 06:40 WBC RBC Hgb Hct MCV MCH MCHC RDW Plt Count MPV Neutrophils % Lymphocytes % Monocytes % Eosinophils % Basophils % Nucleated RBC % Sodium Potassium Chloride Carbon Dioxide Anion Gap BUN Creatinine Creat Clearance w eGFR Random Glucose Calcium Total Bilirubin AST ALT Alkaline Phosphatase Total Protein Albumin Urine Color Yellow Urine Appearance Slcloudy Urine pH 5.0 Ur Specific [place] 1.030 Urine Protein Negative Urine Glucose (UA) Negative Urine Ketones Negative Urine Blood Negative Urine Nitrite Negative Urine Bilirubin Negative Urine Urobilinogen Negative Ur Leukocyte Esterase Trace Urine WBC (Auto) 4 Urine RBC (Auto) 1 Ur Epithelial Cells Rare Hyaline Casts 3 Urine Mucus Rare Stool Occult Blood CXR: mediastinal shift to right s/p Right pneumonectomy scattered air-fluid levels ASSESSMENT/PLAN: 47M with HIV and polysubstance abuse presents to the ED with nausea, vomiting, and diarrhea. Nausea, vomiting, diarrhea:could be viral gastroenteritis vs infectious colitis vs opportunistic gastrointestinal infections place on observation bolus IVF start NS @ 125ml/hr CXR concern for SBO given air fluid levels-will get KUB and consider CT depending on symptoms and imaging results zofran PRN f/u blood cultures f/u urine cultures f/u stool studies ID consult HIV: unknown CD4 or viral load will send CD4 profile will send viral load ID consult continue truvada and issentress anxiety/depression: continue Zoloft continue seroquel history of right pneumonectomy secondary to pulmonary infarct polysubstance abuse: not in withdrawals at this time discharge back to [facility] when ready for discharge FEN: NS @ 125ml/hr no electrolyte issues NPO for now PPx: HSQ/SCDs no PPI indicated No PT consult indicated Case discussed with attending Dr. Bender Visit type - Emergency Visit Emergency Visit: Yes ED Registration Date: 07/03/17 Care time: The patient presented to the Emergency Department on the above date and was hospitalized for further evaluation of their emergent condition. - New Patient This patient is new to me today: Yes Date on this admission: 07/03/17 - Critical Care Critical Care patient: No Hospitalist Screening - Colonoscopy Questionnaire Colonoscopy Questionnaire: Colonoscopy Questionnaire - Patient: 50 - 75 years old and never had a screening colonoscopy: No History of colon or rectal polyps, or CA: No History of IBD, Crohn's disease or UC: No History of abdominal radiation therapy as a child: No - Relative: 1 with colon or rectal CA, or polyps at age 60 or younger: No Colon or rectal CA diagnosed at age 45 or younger: No Multiple relatives with colon or rectal CA: No - Outcome: Screening Result: Negative Screen
[2017-07-03] MEDS ORDERED: ONDANSETRON 4 MG/2 ML VIAL IVPUSH PRN (08:32)
[2017-07-03] MEDS ORDERED: HEPARIN NA (PORCINE) 5,000 UNITS/ML 1ML VIAL ONE (08:51)
[2017-07-03] MEDS: HEPARIN NA (PORCINE) 5,000 UNITS/ML 1ML VIAL SQ SCH ×3 (08:57→22:39)
[2017-07-03] MEDS: SODIUM CHLORIDE 1,000 ML IV SCH ×3 (08:57→22:43)
[2017-07-03] MEDS: SERTRALINE HCL 50 MG TABLET (FP) PO SCH (11:37)
[2017-07-03] MEDS: EMTRICITABINE 200MG/TENOFOVIR 300MG PO SCH (11:37)
[2017-07-03] MEDS: RALTEGRAVIR POTASSIUM 400 MG TAB PO SCH ×2 (11:37→22:40)
--- NOTE | 2017-07-03 13:10 | PN ---
Teaching Attending Note Name of Resident: René Peterson ATTENDING PHYSICIAN STATEMENT I saw and evaluated the patient. I reviewed the resident's note and discussed the case with the resident. I agree with the resident's findings and plan as documented. SUBJECTIVE:47yo M with PMH HIV on HARRT, polysubstance abuse and depression was sent from [facility] due to intractable vomiting and diarrhea x1 day. states he was in normal state of health prior to events. states he ate eggs in the morning and chicken for lunch and dinner. vomited 10x and profuse watery light brown stool. had similar episode 6 months ago after eating eggs and self resolved after 3 days. denies CP, SOB, fever, chills, night sweats, rash. claims medication compliance. last CD4 was high and VL undetectable which was checked in past 6 months. HIV clinic is Dr Cali OBJECTIVE: Last Vital Signs Temp Pulse Resp BP Pulse Ox 97.6 F 100 H 18 95/56 98 07/03/17 11:06 07/03/17 11:06 07/03/17 11:06 07/03/17 11:06 07/03/17 09:31 General NAD CV S1 S2 RRR no murmur/rub/gallop Lungs CTA B/L no wheezing/rales/rhonchi Abdomen soft NT/ND normoactive BS no rebound or guarding Extremities no pedal edema ASSESSMENT AND PLAN: 47yo M with PMH HIV on HARRT, polysubstance abuse and depression was sent from [facility] due to intractable vomiting and diarrhea x1 day. 1. Nausea and vomiting with diarrhea- most likely gastroenteritis vs colitis vs opportunistic infection. no episodes of vomiting here and 1 loose BM since arrival. will check AXR as CXR appears to have some dilated bowel loops although pt appears nontoxic and hemodynamically stable. NPO, IVF, antiemetics. check Cx. stool cx. r/o cdiff. Consult ID 2. HIV on HARRT- cont home regimen. CD4 count pending 3. Polysubstance abuse- last use was 2 weeks ago prior to admission to [facility]. no signs of withdrawal. encourage drug abstinence. cont thimaine/mVI 4. Depression- cont home medications 5. DVT ppx- Hep sq
--- NOTE | 2017-07-03 15:20 | PN ---
Progress Note (short form) - Note Progress Note: ID consult dictated hiv positive since 1999- high tcell (no bactrim) on truvada/isentress, folowed by Dr Higgins at [facility] in the [place] admitted for detox 06/24 to 06/28 transferred to rehab and developed vomiting and diarrhea 07/02- did not eat out and no one else sick at rehab no fevers or chills +cramps with the diarrhea-nonbloody vomiting has resolved ?viral illness gastroenteritis as he is afebrile it is reasonable to check stools for enteric pathogens, cdiff continue hydration if he has fever or worsening abdominal pain would obtain imaging of the abdomen and start levaquin/flagyl regarding HIV- cd4 count, continue art when able to take po meds substance use Problem List - Problems (1) Nausea vomiting and diarrhea Code(s): R11.2 - NAUSEA WITH VOMITING, UNSPECIFIED; R19.7 - DIARRHEA, UNSPECIFIED (2) HIV disease Code(s): B20 - HUMAN IMMUNODEFICIENCY VIRUS [HIV] DISEASE (3) Substance use disorder Code(s): F19.90 - OTHER PSYCHOACTIVE SUBSTANCE USE, UNSPECIFIED, UNCOMPLICATED
--- NOTE | 2017-07-03 16:14 | CONS ---
DATE OF CONSULTATION: 07/03/2017 REQUESTED BY: Hospitalist Service This is a 47-year-old man, HIV-positive since 1999, reports high T-cells. He is not on Bactrim. He is on Truvada/Isentress. He is followed by Candie Mcpherson at [facility] in [place]. He was admitted for detox from June 24 to June 28 and then transferred to the rehabilitation there. Yesterday, he developed vomiting and diarrhea. He reports he did not eat out, he did not order take-in, and no one else has been sick at the rehabilitation. He has had no fevers or chills. He has had cramps with the diarrhea, which had been nonbloody. He had some vomiting that has resolved. He has not vomited since 4 a.m. this morning. I am asked to see him for further recommendations. He came in through the emergency room, he got several liters of fluid, and is reportedly feeling better. 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 This was in 2014 and the surgery was done at [facility]. He has no known drug allergies. MEDICATIONS: Truvada/Isentress; Seroquel; Ambien; Zoloft; hydroxyzine; and thiamine. SOCIAL HISTORY: He is a smoker. He last drank 2 weeks ago and used cocaine 2 weeks ago. He had been incarcerated in the past. He has been out of detention since December 2015. He states he lives alone. He also reports being hepatitis B positive. He denies hepatitis C. REVIEW OF SYSTEMS: As stated. He reports he has some cramps when he has the diarrhea. He had vomiting, but this is now resolved. PHYSICAL EXAMINATION: General: He is well-appearing. Vital Signs: Temperature is 98.2; he has had no fever since admission. Pulse is 92, blood pressure 117/64, respiratory rate is 20. He weighs 141 pounds. HEENT: He is normocephalic. Eyes are anicteric. He has no thrush. Neck: Supple. He has no adenopathy. Lungs: Clear to auscultation. Heart: Regular rate and rhythm. Abdomen: Soft. There is no distention. He has good bowel sounds. He has some mild, diffuse discomfort to palpation. Extremities: Without edema. LABORATORIES: Notable for a white count of 9.5, hemoglobin 15.7, platelets of 204. BUN 22, creatinine 1.1. AST of 43, ALT of 82. Urinalysis is negative. T-cells are pending. Blood cultures and stool cultures have been ordered. Chest x-ray shows evidence of pneumonectomy with an otherwise clear left lung. SUMMARY: 1. This is a human immunodeficiency virus positive man with what appears to be robust T-cells, based on the history he could give, transferred from rehabilitation for gastroenteritis, possibly viral, possible food-related. It appears to be self-resolving. He is nontoxic-appearing, afebrile. I think it would be reasonable at this point to continue hydration and check his stools for enteric pathogens and Clostridium difficile. Continue hydration. If he has fever or worsening abdominal pain, would obtain imaging of the abdomen and start Levaquin and Flagyl. 2. Regarding his human immunodeficiency virus, T-cells are pending. Would continue his antiretroviral therapy when he is able to take oral medications. 3. History of substance use. ANGELINA ZAMORA M.D. [id number]
--- NOTE | 2017-07-03 20:42 | EKG ---
Test Reason : Blood Pressure : / mmHG Vent. Rate : 084 BPM Atrial Rate : 084 BPM P-R Int : 164 ms QRS Dur : 080 ms QT Int : 384 ms P-R-T Axes : 059 053 064 degrees QTc Int : 453 ms NORMAL SINUS RHYTHM NORMAL ECG WHEN COMPARED WITH ECG OF 24-JUN-2017 22:26, NO SIGNIFICANT CHANGE WAS FOUND Confirmed by CIARAN PETER MD ([id number]) on 07/03/2017 8:41:50 PM Referred By: Bekah ARRIAZA Confirmed By:CIARAN PETER MD
[2017-07-03] MEDS ORDERED: PT OWN MED DRAWER 7, Y5N ONE ×2 (21:28→22:34)
[2017-07-03] MEDS: THIAMINE HCL 100 MG TABLET (FP) PO SCH (22:41)
[2017-07-03] MEDS: QUEtiapine FUMARATE 200 MG TABLET PO SCH (22:41)
[2017-07-04] MEDS: HEPARIN NA (PORCINE) 5,000 UNITS/ML 1ML VIAL SQ SCH ×3 (06:57→22:14)
[2017-07-04] MEDS: SODIUM CHLORIDE 1,000 ML IV SCH ×2 (06:57→10:13)
[2017-07-04 07:52] LABS: HEMOGLOBIN 12.4 GM/dL (11.7-16.9); MCH 31.2 pg (25.7-33.7); MCHC 32.7 g/dl (32.0-35.9); MEAN CELL VOLUME 95.6 fl (80-96); MEAN PLT VOLUME 7.6 fl (7.5-11.1); PLATELET COUNT 180 K/MM3 (134-434); RBC 3.98 M/mm3 (4.00-5.60); RDW 13.6 % (11.9-15.9)
[2017-07-04 08:13] LABS: ANION GAP 3 (8-16); BLOOD UREA NITROGEN 10 mg/dL (7-18); CALCIUM 7.9 mg/dL (8.5-10.1); CHLORIDE 109 mmol/L (98-107); CO2 27 mmol/L (21-32); GLUCOSE,RANDOM 76 mg/dL (74-106); MAGNESIUM 1.8 mg/dL (1.8-2.4); PHOSPHOROUS 2.8 mg/dL (2.5-4.9); POTASSIUM 4.2 mmol/L (3.5-5.1); SODIUM 139 mmol/L (136-145)
--- NOTE | 2017-07-04 09:59 | PN ---
Progress Note (short form) - Note Progress Note: diarrhea resolved- last episode 11 pm last night, no bm since no fevers abd discomfort resolved no IVDU Vital Signs Period Temp Pulse Resp BP Sys/Elam Pulse Ox Last 24 Hr 97.6 F-98.2 F 75-100 18-20 95-128/56-76 99 cor-rrr lungs clear abd soft,nt ext no edema CBC, BMP 07/04/17 07:28 07/04/17 07:28 Microbiology 07/03/17 06:40 Urine - Urine Clean Catch Urine Culture - Final NO GROWTH OBTAINED 07/03/17 05:36 Blood - Peripheral Venous Blood Culture - Preliminary Pending Organism 07/03/17 06:00 Blood - Peripheral Venous Blood Culture - Preliminary NO GROWTH OBTAINED AFTER 24 HOURS, INCUBATION TO CONTINUE FOR 4 DAYS. 07/03/17 05:30 Stool Gram Stain - Final 07/03/17 05:30 Stool Clostridium difficile Antigen (BUTCH) - Final 07/03/17 05:30 Stool Clostridium difficile Toxin Assay - Final a/p positive blood cultue- one of four bottles will repeat blood cultures and then start vancomycin d/w patient gastroenteritis improving f/u cultures, advance diet regarding HIV- cd4 count, continue art when able to take po meds substance use Problem List - Problems (1) Nausea vomiting and diarrhea Code(s): R11.2 - NAUSEA WITH VOMITING, UNSPECIFIED; R19.7 - DIARRHEA, UNSPECIFIED (2) HIV disease Code(s): B20 - HUMAN IMMUNODEFICIENCY VIRUS [HIV] DISEASE (3) Substance use disorder Code(s): F19.90 - OTHER PSYCHOACTIVE SUBSTANCE USE, UNSPECIFIED, UNCOMPLICATED
[2017-07-04] MEDS ORDERED: PT OWN MED DRAWER 7, Y5N ONE ×2 (11:21→20:54)
[2017-07-04] MEDS: EMTRICITABINE 200MG/TENOFOVIR 300MG PO SCH (11:23)
[2017-07-04] MEDS: MULTIVITAMINS (DAILY MVI) TABLET (FP) PO SCH (11:23)
[2017-07-04] MEDS: SERTRALINE HCL 50 MG TABLET (FP) PO SCH (11:23)
[2017-07-04] MEDS: RALTEGRAVIR POTASSIUM 400 MG TAB PO SCH ×2 (11:24→22:05)
[2017-07-04] MEDS: VANCOMYCIN 1 GM PREMIX - 1 GM/200 ML BAG IVPB SCH ×2 (12:08→22:04)
--- NOTE | 2017-07-04 12:32 | PN ---
Progress Note (short form) - Note Progress Note: asymptomatic. states his diarrhea has stopped. no more episodes of vomiting. tolerating liquid diet and requesting regular food. denies CP, SOB, fever, chills, N/V/C/D Current Medications Generic Name Dose Route Start Last Admin Trade Name Freq PRN Reason Stop Dose Admin Emtricitabine/Tenofovir 1 tab 07/03/17 10:00 07/04/17 11:23 Truvada PO 1 tab DAILY DEMARCUS Administration Heparin Sodium (Porcine) 5,000 unit 07/03/17 08:45 07/04/17 06:57 Heparin - SQ 5,000 unit TID DEMARCUS Administration Sodium Chloride 1,000 mls @ 125 mls/hr 07/03/17 08:45 07/04/17 10:13 Normal Saline - IV Not Given ASDIR DEMARCUS Vancomycin HCl 1 gm in 200 mls @ 166.667 mls/hr 07/04/17 11:00 07/04/17 12:08 Vancomycin 1 Gm Premix - IVPB 166.667 mls/hr BID@1100,2300 DEMARCUS Administration Protocol Multivitamins/Minerals/Vitamin C 1 tab 07/04/17 10:00 07/04/17 11:23 Tab-A-Vit - PO 1 tab DAILY DEMARCUS Administration Ondansetron HCl 4 mg 07/03/17 08:32 Zofran Injection IVPUSH Q6H PRN NAUSEA Quetiapine Fumarate 200 mg 07/03/17 22:00 07/03/17 22:41 Seroquel - PO 200 mg HS DEMARCUS Administration Raltegravir 400 mg 07/03/17 10:00 07/04/17 11:24 Isentress - PO 400 mg BID DEMARCUS Administration Sertraline HCl 50 mg 07/03/17 10:00 07/04/17 11:23 Zoloft - PO Not Given DAILY DEMARCUS Thiamine HCl 100 mg 07/03/17 22:00 07/03/17 22:41 Vitamin B1 - PO 100 mg HS DEMARCUS Administration Last Vital Signs Temp Pulse Resp BP Pulse Ox 98.1 F 78 18 120/76 99 07/04/17 09:15 07/04/17 09:15 07/04/17 09:15 07/04/17 09:15 07/04/17 03:00 General NAD CV S1 S2 RRR no murmur/rub/gallop Lungs CTA B/L no wheezing/rales/rhonchi Abdomen soft NT/ND normoactive BS no rebound or guarding Extremities no pedal edema CBCD WBC 6.0 K/mm3 (4.0-10.0) D 07/04/17 07:28 RBC 3.98 M/mm3 (4.00-5.60) L 07/04/17 07:28 Hgb 12.4 GM/dL (11.7-16.9) 07/04/17 07:28 Hct 38.0 % (35.4-49) 07/04/17 07:28 MCV 95.6 fl (80-96) 07/04/17 07:28 MCHC 32.7 g/dl (32.0-35.9) 07/04/17 07: RDW 13.6 % (11.9-15.9) 07/04/17 07:28 Plt Count 180 K/MM3 (134-434) 07/04/17 07:28 MPV 7.6 fl (7.5-11.1) 07/04/17 07:28 CMP Sodium 139 mmol/L (136-145) 07/04/17 07:28 Potassium 4.2 mmol/L (3.5-5.1) 07/04/17 07:28 Chloride 109 mmol/L (98-107) H 07/04/17 07:28 Carbon Dioxide 27 mmol/L (21-32) 07/04/17 07:28 Anion Gap 3 (8-16) L 07/04/17 07:28 BUN 10 mg/dL (7-18) D 07/04/17 07:28 Creatinine 1.0 mg/dL (0.7-1.3) 07/04/17 07:28 Creat Clearance w eGFR > 60 (>60) 07/03/17 05:20 Calcium 7.9 mg/dL (8.5-10.1) L 07/04/17 07:28 Total Bilirubin 0.4 mg/dL (0.2-1.0) 07/03/17 05:20 AST 43 U/L (15-37) H 07/03/17 05:20 ALT 82 U/L (12-78) H D 07/03/17 05:20 Alkaline Phosphatase 109 U/L (45-117) 07/03/17 05:20 Total Protein 8.0 g/dl (6.4-8.2) D 07/03/17 05:20 Albumin 3.4 g/dl (3.4-5.0) D 07/03/17 05:20 Microbiology 07/03/17 05:30 Gram Stain - Final Stool Salmonella/Shigella Culture - Preliminary NO ENTERIC PATHOGENS, 24 HOURS, ON PRIMARY PLATES Yersinia Culture - Preliminary NO ENTERIC PATHOGENS, 24 HOURS, ON PRIMARY PLATES Vibrio Culture - Final NO GROWTH OF VIBRIO SPECIES OBTAINED Escherichia coli 0157 Culture - Final NO GROWTH OF E COLI 0157 OBTAINED 07/03/17 06:40 Urine Culture - Final Urine - Urine Clean Catch NO GROWTH OBTAINED 07/03/17 05:36 Blood Culture - Preliminary Blood - Peripheral Venous Pending Organism 07/03/17 06:00 Blood Culture - Preliminary Blood - Peripheral Venous NO GROWTH OBTAINED AFTER 24 HOURS, INCUBATION TO CONTINUE FOR 4 DAYS. 07/03/17 05:30 Clostridium difficile Antigen (BUTCH) - Final Stool Clostridium difficile Toxin Assay - Final ASSESSMENT AND PLAN: 47yo M with PMH HIV on HARRT, polysubstance abuse and depression was sent from [facility] due to intractable vomiting and diarrhea x1 day. 1. Nausea and vomiting with diarrhea- most likely gastroenteritis vs colitis vs opportunistic infection. now resolved. tolerated liquid diet. will advance to regular diet and see if tolerated. stool cx negative to this point. AXR yesterday showing some ileus but pt is not distended and tolerating diet. will advance diet. can d/c iVF 2. +BCx- GPC in 1 of 4 bottles. likely contaminate. will f/u Cx report. repeat Cx sent. vanco started by ID. will follow 3. HIV on HARRT- cont home regimen. CD4 count pending 4. Polysubstance abuse- last use was 2 weeks ago prior to admission to [facility]. no signs of withdrawal. encourage drug abstinence. cont thimaine/mVI 5. Depression- cont home medications 6. DVT ppx- Hep sq 7. can likely discharge to [facility] to complete inpatient rehab pending results of Blood cultures. SW aware of possible d/c tomorrow Visit type - Emergency Visit Emergency Visit: Yes ED Registration Date: 07/03/17 Care time: The patient presented to the Emergency Department on the above date and was hospitalized for further evaluation of their emergent condition. - New Patient This patient is new to me today: No - Critical Care Critical Care patient: No - Discharge Referral Referred to [facility] Med P.C.: No
[2017-07-04] MEDS: THIAMINE HCL 100 MG TABLET (FP) PO SCH (22:04)
[2017-07-04] MEDS: QUEtiapine FUMARATE 200 MG TABLET PO SCH (22:05)
[2017-07-05] MEDS: HEPARIN NA (PORCINE) 5,000 UNITS/ML 1ML VIAL SQ SCH (05:53)
[2017-07-05] MEDS ORDERED: PT OWN MED DRAWER 7, Y5N ONE (10:03)
[2017-07-05] MEDS: EMTRICITABINE 200MG/TENOFOVIR 300MG PO SCH (10:09)
[2017-07-05] MEDS: RALTEGRAVIR POTASSIUM 400 MG TAB PO SCH (10:09)
[2017-07-05] MEDS: MULTIVITAMINS (DAILY MVI) TABLET (FP) PO SCH (10:09)
[2017-07-05] MEDS: SERTRALINE HCL 50 MG TABLET (FP) PO SCH (10:09)
[2017-07-05] MEDS: VANCOMYCIN 1 GM PREMIX - 1 GM/200 ML BAG IVPB SCH (11:42)
--- NOTE | 2017-07-05 14:49 | PN ---
Progress Note (short form) - Note Progress Note: diarrhea resolved- last episode 11 pm last night, no bm since no fevers abd discomfort resolved no IVDU feels well regular diet Vital Signs Period Temp Pulse Resp BP Sys/Elam Pulse Ox Last 24 Hr 97.5 F-98.4 F 68-87 17-19 104-146/71-91 100 cor-rrr lungs clear abd soft,nt ext no edema CBC, BMP 07/04/17 07:28 07/04/17 07:28 Microbiology 07/03/17 05:30 Stool Gram Stain - Final 07/03/17 05:30 Stool Salmonella/Shigella Culture - Final NO GROWTH OF SALMONELLA OR SHIGELLA SPECIES OBTAINED 07/03/17 05:30 Stool Campylobacter Culture - Final NO GROWTH OF CAMPYLOBACTER SPECIES OBTAINED 07/03/17 05:30 Stool Yersinia Culture - Final NO GROWTH OF YERSINIA SPECIES OBTAINED 07/03/17 05:30 Stool Vibrio Culture - Final NO GROWTH OF VIBRIO SPECIES OBTAINED 07/03/17 05:30 Stool Escherichia coli 0157 Culture - Final NO GROWTH OF E COLI 0157 OBTAINED 07/04/17 11:10 Blood - Peripheral Venous Blood Culture - Preliminary NO GROWTH OBTAINED AFTER 24 HOURS, INCUBATION TO CONTINUE FOR 4 DAYS. 07/04/17 10:20 Blood - Peripheral Venous Blood Culture - Preliminary NO GROWTH OBTAINED AFTER 24 HOURS, INCUBATION TO CONTINUE FOR 4 DAYS. 07/03/17 05:36 Blood - Peripheral Venous Blood Culture - Preliminary Staphylococcus Coagulase Neg Staphylococcus Coagulase Neg#2 Staphylococcus Coagulase Neg#3 07/03/17 06:00 Blood - Peripheral Venous Blood Culture - Preliminary NO GROWTH OBTAINED AFTER 48 HOURS, INCUBATION TO CONTINUE FOR 3 DAYS. 07/03/17 05:20 Serum Legionella Serology - Preliminary 07/03/17 06:40 Urine - Urine Clean Catch Urine Culture - Final NO GROWTH OBTAINED 07/03/17 05:30 Stool Clostridium difficile Antigen (BUTCH) - Final 07/03/17 05:30 Stool Clostridium difficile Toxin Assay - Final a/p positive blood culture- one of four bottles contaminant- 3 different ETL ANALYST!repeat blood cultures are negative d/c vancomycin gastroenteritis -resolved regarding HIV- cd4 count, continue art- f/u with his PMD as outpt substance use for rehab please call back if needed Problem List - Problems (1) Nausea vomiting and diarrhea Code(s): R11.2 - NAUSEA WITH VOMITING, UNSPECIFIED; R19.7 - DIARRHEA, UNSPECIFIED (2) HIV disease Code(s): B20 - HUMAN IMMUNODEFICIENCY VIRUS [HIV] DISEASE (3) Substance use disorder Code(s): F19.90 - OTHER PSYCHOACTIVE SUBSTANCE USE, UNSPECIFIED, UNCOMPLICATED
[2017-07-05 15:01] VITALS: BP 138/93; PULSE 80; TEMP 98.3
--- NOTE | 2017-07-05 17:05 | PN ---
Physical Exam: SUBJECTIVE: Patient seen and examined at bedside. No acute events overnight. This AM, pt states that he no longer has nausea or diarrhea. He has been tolerating his diet. Requesting placement in [facility] for rehab, as he does not like the environment at [facility]. Will be available on . Pt denies FOX, fever, chills, SOB, chest pain or pressure, or changes in urinary or bowel function. OBJECTIVE: Vital Signs Period Temp Pulse Resp BP Sys/Elam Pulse Ox Last 24 Hr 97.5 F-98.4 F 68-87 17-19 104-146/71-93 100-100 GENERAL: The patient is awake, alert, and fully oriented, in no acute distress. HEAD: Normal with no signs of trauma. EYES: PERRL, extraocular movements intact, sclera anicteric, conjunctiva clear. ENT: Ears normal, nares patent, oropharynx clear without exudates, moist mucous membranes. NECK: Trachea midline, supple. LUNGS: Breath sounds equal, clear to auscultation bilaterally, no wheezes, no crackles, no accessory muscle use. HEART: Regular rate and rhythm, S1, S2 without murmur, rub or gallop. ABDOMEN: Soft, nontender, nondistended, normoactive bowel sounds, no guarding, no rebound, no hepatosplenomegaly, no masses. EXTREMITIES: 2+ dp, pt pulses, warm, well-perfused, no edema. NEUROLOGICAL: Cranial nerves II through XII grossly intact. PSYCH: Normal mood, normal affect. SKIN: Warm, dry, normal turgor, no rashes or lesions noted Laboratory Tests 07/03/17 07/03/17 07/03/17 05:20 05:20 05:20 WBC 9.5 D Hgb 13.7 Hct 41.6 Plt Count 204 Sodium 138 Potassium 4.4 Chloride 106 BUN 22 H D Creatinine 1.1 AST 43 H ALT 82 H D Absolute CD3 Count 960 % CD3+ Lymphocytes 48.0 L Absolute CD4 [place] 384 % CD4+ Lymphocyte 19.2 L CD4/CD8 Ratio 0.73 L % CD8+ Lymphocyte 26.4 Absolute CD8 Count 528 07/04/17 07/04/17 07:28 07:28 WBC 6.0 D Hgb 12.4 Hct 38.0 Plt Count 180 Sodium 139 Potassium 4.2 Chloride 109 H BUN 10 D Creatinine 1.0 ALT IMAGING 07/03/17: CXR: previous R pneumonectomy. Mediastinal shift to the right. Clear left lung. Possible abdominal pathology. 07/03/17: Abdominal KUB: distended small bowel loops suggestive of possible obstruction. Microbiology 07/03/17 06:40 Urine - Urine Clean Catch Urine Culture - Final NO GROWTH OBTAINED 07/03/17 05:30 Stool Gram Stain - Final 07/03/17 05:30 Stool Escherichia coli 0157 Culture - Final NO GROWTH OF SALMONELLA OR SHIGELLA SPECIES OBTAINED NO GROWTH OF CAMPYLOBACTER SPECIES OBTAINED NO GROWTH OF YERSINIA SPECIES OBTAINED NO GROWTH OF VIBRIO SPECIES OBTAINED NO GROWTH OF E COLI 0157 OBTAINED 07/03/17 05:30 Stool Clostridium difficile Antigen (BUTCH) - Final 07/03/17 05:30 Stool Clostridium difficile Toxin Assay - Final 07/04/17 11:10 Blood - Peripheral Venous Blood Culture - Preliminary NO GROWTH OBTAINED AFTER 24 HOURS, INCUBATION TO CONTINUE FOR 4 DAYS. 07/04/17 10:20 Blood - Peripheral Venous Blood Culture - Preliminary NO GROWTH OBTAINED AFTER 24 HOURS, INCUBATION TO CONTINUE FOR 4 DAYS. 07/03/17 06:00 Blood - Peripheral Venous Blood Culture - Preliminary NO GROWTH OBTAINED AFTER 48 HOURS, INCUBATION TO CONTINUE FOR 3 DAYS. 07/03/17 05:36 Blood - Peripheral Venous Blood Culture - Preliminary Staphylococcus Coagulase Neg Staphylococcus Coagulase Neg#2 Staphylococcus Coagulase Neg#3 07/03/17 05:20 Serum Legionella Serology - Preliminary ASSESSMENT/PLAN:
--- NOTE | 2017-07-05 17:12 | DS ---
Physical Exam: SUBJECTIVE: Patient seen and examined at bedside. No acute events overnight. This AM, pt states that he no longer has nausea or diarrhea. He has been tolerating his diet. Requesting placement in [facility] for rehab, as he does not like the environment at [facility]. Will be available on . Pt denies FOX, fever, chills, SOB, chest pain or pressure, or changes in urinary or bowel function. OBJECTIVE: Vital Signs Period Temp Pulse Resp BP Sys/Elam Pulse Ox Last 24 Hr 97.5 F-98.4 F 68-87 17-19 104-146/71-93 100-100 GENERAL: The patient is awake, alert, and fully oriented, in no acute distress. HEAD: Normal with no signs of trauma. EYES: PERRL, extraocular movements intact, sclera anicteric, conjunctiva clear. ENT: Ears normal, nares patent, oropharynx clear without exudates, moist mucous membranes. NECK: Trachea midline, supple. LUNGS: Breath sounds equal, clear to auscultation bilaterally, no wheezes, no crackles, no accessory muscle use. HEART: Regular rate and rhythm, S1, S2 without murmur, rub or gallop. ABDOMEN: Soft, nontender, nondistended, normoactive bowel sounds, no guarding, no rebound, no hepatosplenomegaly, no masses. EXTREMITIES: 2+ dp, pt pulses, warm, well-perfused, no edema. NEUROLOGICAL: Cranial nerves II through XII grossly intact. PSYCH: Normal mood, normal affect. SKIN: Warm, dry, normal turgor, no rashes or lesions noted Laboratory Tests 07/03/17 07/03/17 07/03/17 05:20 05:20 05:20 WBC 9.5 D Hgb 13.7 Hct 41.6 Plt Count 204 Sodium 138 Potassium 4.4 Chloride 106 BUN 22 H D Creatinine 1.1 AST 43 H ALT 82 H D Absolute CD3 Count 960 % CD3+ Lymphocytes 48.0 L Absolute CD4 [place] 384 % CD4+ Lymphocyte 19.2 L CD4/CD8 Ratio 0.73 L % CD8+ Lymphocyte 26.4 Absolute CD8 Count 528 07/04/17 07/04/17 07:28 07:28 WBC 6.0 D Hgb 12.4 Hct 38.0 Plt Count 180 Sodium 139 Potassium 4.2 Chloride 109 H BUN 10 D Creatinine 1.0 ALT IMAGING 07/03/17: CXR: previous R pneumonectomy. Mediastinal shift to the right. Clear left lung. Possible abdominal pathology. 07/03/17: Abdominal KUB: distended small bowel loops suggestive of possible obstruction. Microbiology 07/03/17 06:40 Urine - Urine Clean Catch Urine Culture - Final NO GROWTH OBTAINED 07/03/17 05:30 Stool Gram Stain - Final 07/03/17 05:30 Stool Escherichia coli 0157 Culture - Final NO GROWTH OF SALMONELLA OR SHIGELLA SPECIES OBTAINED NO GROWTH OF CAMPYLOBACTER SPECIES OBTAINED NO GROWTH OF YERSINIA SPECIES OBTAINED NO GROWTH OF VIBRIO SPECIES OBTAINED NO GROWTH OF E COLI 0157 OBTAINED 07/03/17 05:30 Stool Clostridium difficile Antigen (BUTCH) - Final 07/03/17 05:30 Stool Clostridium difficile Toxin Assay - Final 07/04/17 11:10 Blood - Peripheral Venous Blood Culture - Preliminary NO GROWTH OBTAINED AFTER 24 HOURS, INCUBATION TO CONTINUE FOR 4 DAYS. 07/04/17 10:20 Blood - Peripheral Venous Blood Culture - Preliminary NO GROWTH OBTAINED AFTER 24 HOURS, INCUBATION TO CONTINUE FOR 4 DAYS. 07/03/17 06:00 Blood - Peripheral Venous Blood Culture - Preliminary NO GROWTH OBTAINED AFTER 48 HOURS, INCUBATION TO CONTINUE FOR 3 DAYS. 07/03/17 05:36 Blood - Peripheral Venous Blood Culture - Preliminary Staphylococcus Coagulase Neg Staphylococcus Coagulase Neg#2 Staphylococcus Coagulase Neg#3 07/03/17 05:20 Serum Legionella Serology - Preliminary Admit date: 07/03/17 Discharge: 07/05/17 Admit diagnosis: possible viral gastroenteritis vs. colitis 47 y/o M with hx of HIV and polysubstance abuse, currently in [facility] for the past two weeks for drug rehabilitation, who presented to the ED from [facility] for nausea, vomiting, and diarrhea over the past day. On admission, pt believed that he may have food poisoning, however no one else at his facility had similar symptoms. Pt ate eggs for breakfast and chicken for both lunch and dinner. He subsequently experienced ten episodes of NBNB emesis, as well as multiple loose stools. Pt admitted for possible viral gastroenteritis vs. colitis. Pt underwent abdominal XR which revealed possible obstruction, however symptomatically, pt improved as he was able to tolerate his diet advancement quickly. On day of d/c, pt eating solids without emesis. Pt seen by infection team during this time, and continued on HAART medications. Blood cx positive with contaminants, and stool, ucx were negative. During hospitalization, without sign of substance withdrawal. [facility] . Discussed with patient. Minutes to complete discharge: 45 Discharge Summary Reason For Visit: NAUSEA,VOMITING AND DIARRHEA Condition: Stable - Instructions Diet, Activity, Other Instructions: You were in the hospital due to nausea, vomiting. It is likely you had a viral stomach infection. Rest your body and drink plenty of fluids to recover. You may continue your home medications at your rehab facility. We are sending these prescriptions to your pharmacy. Please follow up with your primary care doctor, and an infection specialist- Dr. Villalobos in one week. We hope you feel better soon. Referrals: Cecy Villalobos MD [Staff Physician] - 1 Week Disposition: HOME - Home Medications Comprehensive Discharge Medication List: Ambulatory Orders Hydroxyzine Pamoate 25 mg PO PRN 07/03/17 Emtricitabine/Tenofovir [Truvada -] 1 tab PO DAILY 14 Days tablet 07/05/17 Multivitamins [Multivit ([facility] Form[facility])] 1 tab PO DAILY tab 07/05/17 Quetiapine Fumarate [Seroquel -] 100 mg PO HS #14 tablet 07/05/17 Raltegravir [Isentress] 400 mg PO BID #28 tab 07/05/17 Sertraline HCl [Zoloft -] 50 mg PO DAILY 14 Days #30 tablet 07/05/17 Thiamine HCl [B-1] 100 mg PO HS #14 tablet 07/05/17 Zolpidem Tartrate [Ambien] 10 mg PO HS 7 Days tablet MDD 10 07/05/17 This patient is new to me today: No Emergency Visit: No Critical Care patient: No - Discharge Referral Referred to [facility] Med P.C.: No
--- NOTE | 2017-07-05 17:18 | PN ---
Teaching Attending Note Name of Resident: Deisi Saldaña ATTENDING PHYSICIAN STATEMENT I saw and evaluated the patient. I reviewed the resident's note and discussed the case with the resident. I agree with the resident's findings and plan as documented. SUBJECTIVE: OBJECTIVE: Vital Signs Period Temp Pulse Resp BP Sys/Elam Pulse Ox Last 24 Hr 97.5 F-98.3 F 68-87 18-19 104-146/71-93 100-100 ASSESSMENT AND PLAN:
[2017-07-10 06:51] LABS: STOOL CHLORIDE 43 mmol/L (.); STOOL POTASSIUM 26 mmol/L (.); STOOL SODIUM 112 mmol/L (.)
== END 2017-07-05 16:22 | disposition home or self-care (01) | DRG 249 ==
LOC: JER 04:31 → INTOOBSV 07:49 → JERBED 07:49 → J5S 09:48 → OBSVTOIN 07-04 12:32
PROVIDERS: ADMIT Internal Medicine; ATTEND Internal Medicine
DX: K52.9 Noninfective gastroenteritis and colitis, unspecified (principal); R11.2 Nausea with vomiting, unspecified; Z21 Asymptomatic human immunodeficiency virus [HIV] infection status; F32.9 Major depressive disorder, single episode, unspecified; F17.210 Nicotine dependence, cigarettes, uncomplicated; F10.20 Alcohol dependence, uncomplicated; F14.10 Cocaine abuse, uncomplicated; Z90.2 Acquired absence of lung [part of]
CPT/HCPCS: 36415; 71046-TC-FY; 74018-TC-FY; 80048; 80053; 81003; 81015; 82272; 82438; 83735; 83986; 84100; 84302; 84999; 85025; 85027; 86359; 86360; 86713; 87040; 87045; 87046; 87086; 87177; 87186; 87205; 87209; 87324; 87449; 93005; 93010; 99285-25; G0378; J1644; J7030

== ENCOUNTER 2018-11-17 10:59 | Inpatient (IN) | payer OTHER ==
[2018-11-17 11:36] VITALS: BMI 22.9
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
[2018-11-17] MEDS ORDERED: P-EPHED 60MG/TRIPROLIDI 2.5MG TABLET PO PRN ×2 (13:41→16:32)
[2018-11-17] MEDS ORDERED: MAGNESIUM CITRATE 300 ML BOTTLE PO PRN ×2 (13:41→16:32)
[2018-11-17] MEDS ORDERED: MENTHOL/PHENOL 1 EACH UD MM PRN ×2 (13:41→16:32)
[2018-11-17] MEDS ORDERED: IBUPROFEN 400 MG TABLET (FP) PO PRN ×2 (13:41→16:32)
[2018-11-17] MEDS ORDERED: guaiFENesin 200 MG/10 ML 10 ML UNIT-DOSE CUPS PO PRN ×2 (13:41→16:32)
[2018-11-17] MEDS ORDERED: MAGNESIUM HYDROX 2400MG/30ML ORAL SUSPENSION 30 ML CUP PO PRN ×2 (13:41→16:32)
[2018-11-17] MEDS ORDERED: LOPERAMIDE HCL 2 MG CAPSULE PO PRN ×2 (13:41→16:32)
[2018-11-17] MEDS ORDERED: ACETAMINOPHEN 325 MG TABLET (FP) PO PRN ×2 (13:41→16:32)
[2018-11-17] MEDS ORDERED: MAG HYDROX/AL HYDROX/SIMETH 30 ML UNIT-DOSE CUP PO PRN ×2 (13:41→16:32)
--- NOTE | 2018-11-17 14:09 | PN ---
Teaching Attending Note Name of Resident: Rommel Trotter ATTENDING PHYSICIAN STATEMENT I saw and evaluated the patient. I reviewed the resident's note and discussed the case with the resident. I agree with the resident's findings and plan as documented. SUBJECTIVE: 48 year old male referred from [facility] outpatient program in [place] for relapse. Alcohol: 1 pint of rum every other day, last drink was yesterday; started 5 years ago from PTSD from group home; withdrawal symptoms include agitation, lack of focus; never had withdrawal seizure PMHx HIV (on HAART ),right lobectomy (2014) from aspergillosis (from long-term), hepatitis B, hypertension, Cocaine: 1gm every day, last used 2 days ago, via inhalation , denies IVDU , first age of use 13. K2: last used last week, had hallucinations Cigarettes: 1/2 pack per day since age 20 Family Situation: has a fiance, supportive of him; no kids Living Situation: lives in the [place], in his own place Work: home health aid OBJECTIVE: wnwd CIWA -1 Vital Signs - 24 hr 11/17/18 11:26 Temperature 97.1 F L Pulse Rate 76 Respiratory 16 Rate Blood Pressure 160/108 H ASSESSMENT AND PLAN: Alcohol dependence / Cocaine dependence - rehab
[2018-11-17] MEDS ORDERED: LISINOPRIL 5 MG TABLET (FP) PO ONE ×2 (16:33→22:00)
[2018-11-17] MEDS: MELATONIN 5 MG TABLETS PO PRN (21:11)
[2018-11-17] MEDS: THIAMINE HCL 100 MG TABLET (FP) PO SCH (21:11)
[2018-11-17] MEDS ORDERED: MELATONIN 5 MG TABLETS PO PRN (22:00)
[2018-11-17] MEDS ORDERED: RALTEGRAVIR POTASSIUM 400 MG TAB PO SCH (22:00)
[2018-11-17] MEDS ORDERED: THIAMINE HCL 100 MG TABLET (FP) PO SCH ×2 (22:00)
[2018-11-18] MEDS ORDERED: EMTRICITABINE 200MG/TENOFOVIR 300MG PO SCH (10:00)
[2018-11-18] MEDS ORDERED: PRENATAL VITAMINS W/ FOLIC ACID TABLET (FP) PO SCH (10:00)
[2018-11-18 10:03] LABS: HEMATOCRIT 36.8 % (35.4-49); HEMOGLOBIN 12.1 GM/dL (11.7-16.9); MCH 30.5 pg (25.7-33.7); MCHC 32.7 g/dl (32.0-35.9); MEAN CELL VOLUME 93.2 fl (80-96); MEAN PLT VOLUME 8.1 fl (7.5-11.1); PLATELET COUNT 229 K/MM3 (134-434); RBC 3.95 M/mm3 (4.00-5.60); RDW 13.4 % (11.9-15.9); WHITE BLOOD COUNT 4.4 K/mm3 (4.0-10.0)
[2018-11-18] MEDS: LISINOPRIL 5 MG TABLET (FP) PO SCH (10:20)
[2018-11-18] MEDS: PRENATAL VITAMINS W/ FOLIC ACID TABLET (FP) PO SCH (10:20)
[2018-11-18 10:24] LABS: ALBUMIN 3.2 g/dl (3.4-5.0); BILIRUBIN,TOTAL 1.2 mg/dL (0.2-1); BLOOD UREA NITROGEN 13.8 mg/dL (7-18); CALCIUM 9.1 mg/dL (8.5-10.1); CREATININE 1.3 mg/dL (0.55-1.3); POTASSIUM 4.5 mmol/L (3.5-5.1); TOT PROT 7.1 g/dl (6.4-8.2)
[2018-11-18] MEDS: BICTEGRAV/EMTRICIT/TENOFOV (BIKTARVY) 50-200-25 MG TABLET PO SCH (12:58)
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
[2018-11-18] MEDS: THIAMINE HCL 100 MG TABLET (FP) PO SCH (21:33)
[2018-11-18] MEDS: MELATONIN 5 MG TABLETS PO PRN (21:33)
[2018-11-18] MEDS: hydrOXYzine PAMOATE 50 MG CAPSULE (FP) PO SCH (21:33)
[2018-11-19] MEDS: PRENATAL VITAMINS W/ FOLIC ACID TABLET (FP) PO SCH (09:43)
[2018-11-19] MEDS: LISINOPRIL 5 MG TABLET (FP) PO SCH (09:43)
[2018-11-19] MEDS: BICTEGRAV/EMTRICIT/TENOFOV (BIKTARVY) 50-200-25 MG TABLET PO SCH (09:43)
[2018-11-19] MEDS: buPROPion HCL 75 MG TABLET PO SCH (13:29)
[2018-11-19] MEDS: MELATONIN 5 MG TABLETS PO PRN (21:09)
[2018-11-19] MEDS: THIAMINE HCL 100 MG TABLET (FP) PO SCH (21:09)
[2018-11-19] MEDS: hydrOXYzine PAMOATE 50 MG CAPSULE (FP) PO SCH (21:09)
[2018-11-20] MEDS ORDERED: PT OWN MED DRAWER 7, Y5N ONE (08:27)
[2018-11-20] MEDS: PRENATAL VITAMINS W/ FOLIC ACID TABLET (FP) PO SCH (09:38)
[2018-11-20] MEDS: BICTEGRAV/EMTRICIT/TENOFOV (BIKTARVY) 50-200-25 MG TABLET PO SCH (09:38)
[2018-11-20] MEDS: LISINOPRIL 5 MG TABLET (FP) PO SCH (09:38)
[2018-11-20] MEDS: buPROPion HCL 75 MG TABLET PO SCH (12:19)
[2018-11-20] MEDS: MELATONIN 5 MG TABLETS PO PRN (21:05)
[2018-11-20] MEDS: hydrOXYzine PAMOATE 50 MG CAPSULE (FP) PO SCH (21:05)
[2018-11-20] MEDS: THIAMINE HCL 100 MG TABLET (FP) PO SCH (21:05)
[2018-11-21] MEDS ORDERED: PT OWN MED DRAWER 7, Y5N ONE ×2 (05:55→08:34)
[2018-11-21] MEDS: BICTEGRAV/EMTRICIT/TENOFOV (BIKTARVY) 50-200-25 MG TABLET PO SCH (08:19)
[2018-11-21] MEDS: PRENATAL VITAMINS W/ FOLIC ACID TABLET (FP) PO SCH (10:01)
[2018-11-21] MEDS: LISINOPRIL 5 MG TABLET (FP) PO SCH (10:01)
[2018-11-21] MEDS: buPROPion HCL 75 MG TABLET PO SCH (10:02)
[2018-11-21] MEDS ORDERED: MINERAL OIL/PETROLAT/WATER TOPICAL CREAM 113 GM JAR TP PRN (10:12)
[2018-11-21] MEDS: hydrOXYzine PAMOATE 50 MG CAPSULE (FP) PO SCH (21:21)
[2018-11-21] MEDS: THIAMINE HCL 100 MG TABLET (FP) PO SCH (21:21)
[2018-11-21] MEDS: MELATONIN 5 MG TABLETS PO PRN (21:21)
[2018-11-22] MEDS: BICTEGRAV/EMTRICIT/TENOFOV (BIKTARVY) 50-200-25 MG TABLET PO SCH (08:36)
[2018-11-22] MEDS ORDERED: PT OWN MED DRAWER 7, Y5N ONE (08:44)
[2018-11-22] MEDS: buPROPion HCL 75 MG TABLET PO SCH (10:31)
[2018-11-22] MEDS: PRENATAL VITAMINS W/ FOLIC ACID TABLET (FP) PO SCH (10:36)
[2018-11-22] MEDS: LISINOPRIL 5 MG TABLET (FP) PO SCH (10:36)
[2018-11-22] MEDS: MELATONIN 5 MG TABLETS PO PRN (21:10)
[2018-11-22] MEDS: THIAMINE HCL 100 MG TABLET (FP) PO SCH (21:10)
[2018-11-22] MEDS: hydrOXYzine PAMOATE 50 MG CAPSULE (FP) PO SCH (21:10)
[2018-11-23] MEDS: BICTEGRAV/EMTRICIT/TENOFOV (BIKTARVY) 50-200-25 MG TABLET PO SCH (08:56)
[2018-11-23] MEDS: PRENATAL VITAMINS W/ FOLIC ACID TABLET (FP) PO SCH (10:57)
[2018-11-23] MEDS: buPROPion HCL 75 MG TABLET PO SCH (10:57)
[2018-11-23] MEDS: LISINOPRIL 5 MG TABLET (FP) PO SCH (10:57)
[2018-11-23] MEDS ORDERED: COLLOIDAL OATMEAL 1 BAR EACH TP PRN (11:50)
[2018-11-23] MEDS: THIAMINE HCL 100 MG TABLET (FP) PO SCH (21:54)
[2018-11-23] MEDS: MELATONIN 5 MG TABLETS PO PRN (21:54)
[2018-11-23] MEDS: hydrOXYzine PAMOATE 50 MG CAPSULE (FP) PO SCH (21:54)
[2018-11-24 07:05] VITALS: BP 140/85; PULSE 77; TEMP 98.2
[2018-11-24] MEDS: PRENATAL VITAMINS W/ FOLIC ACID TABLET (FP) PO SCH (10:32)
[2018-11-24] MEDS: LISINOPRIL 5 MG TABLET (FP) PO SCH (10:32)
[2018-11-24] MEDS: buPROPion HCL 75 MG TABLET PO SCH (10:32)
[2018-11-24] MEDS: BICTEGRAV/EMTRICIT/TENOFOV (BIKTARVY) 50-200-25 MG TABLET PO SCH (10:32)
--- NOTE | 2018-11-24 13:29 | DS ---
[facility] Rehab Discharge Summary - [facility] Rehab Discharge Summary Admission Date: 11/17/18 Discharge Date: 11/24/18 - History Present History: Alcohol dependence, Cocaine dependence - Discharge Physical Exam Vital Signs: Vital Signs Temperature 98.2 F 11/24/18 07:04 Pulse Rate 77 11/24/18 07:04 Respiratory Rate 18 11/24/18 07:04 Blood Pressure 140/85 11/24/18 07:04 O2 Sat by Pulse Oximetry (%) Pertinent Admission Physical Exam Findings: ROS: denies chest pain, shakes, chills, anxiety restlessness and alcohol cravings. PE: alert and oriented x 3 skin warm and dry perrla, eoms intact bl car s1s2, rrr-no murmurs or gallops resp cta bl-no wheezing, rales ext no tremors, no swelling amb ad eric - Treatment Discharge Condition: Discharge condition good Hospital Course: Patient states he would like to like to be discharge today after completing one week in rehab for ETOH/Cocaine dependence. Patient states he girlfriend is admitted to the hospital and he would like to visit her. Patient attended groups , evaluated and treated by psych and states he accomplished all rehab goals. Patient is medically stable at time of discharge and denies SI/HI. - Medication Discharge Medications: Ambulatory Orders Hydroxyzine Pamoate 25 mg PO PRN 07/03/17 Multivitamins [Multivit ([facility] Formulary)] 1 tab PO DAILY tab 07/05/17 Quetiapine Fumarate [Seroquel -] 100 mg PO HS #14 tablet 07/05/17 Sertraline HCl [Zoloft -] 50 mg PO DAILY 14 Days #30 tablet 07/05/17 Thiamine HCl [B-1] 100 mg PO HS #14 tablet 07/05/17 Bictegrav/Emtricit/Tenofov Ala [Biktarvy 50-200-25 mg Tablet] 1 each PO DAILY Lisinopril 5 mg PO DAILY #14 tablet 11/24/18 - Medication-Assisted Treatment (MAT) Medication-Assisted Treatment (MAT): No MAT Follow-up Referral: Patient to follow up with [facility] today after discharge. Patient is currently linked to [facility] and attends group [facility]. - Discharge Instructions Diet, activity, other medical instructions: Diet: reg as tolerated Activity: as tolerated Other medical instructions: Follow up with pcp as recommended. Patient states he has HIV medication in belongings and does not require refill. - Follow-up Referral Minutes to complete discharge: 30 - AMA Did Patient Leave Against Medical Advice: No
--- NOTE | 2018-11-24 14:04 | PN ---
[facility] Progress Note Note: Patient is discharged today. Script for 30 days of Wellbutrin 75 mg/day is electronically transmitted to [facility] [place] [id number] [place] [address]
== END 2018-11-24 13:25 | disposition home or self-care (01) | DRG 772 ==
LOC: YASAS 10:59 → Y3W 17:35
PROVIDERS: ADMIT Allergy & Immunology; ATTEND Allergy & Immunology
PROC: HZ42ZZZ Group Counseling for Substance Abuse Treatment, Cognitive-Behavioral (ICD-10-PCS; principal; 2018-11-17)
DX: F10.20 Alcohol dependence, uncomplicated (principal); F14.20 Cocaine dependence, uncomplicated; F12.20 Cannabis dependence, uncomplicated; F19.20 Other psychoactive substance dependence, uncomplicated; F17.210 Nicotine dependence, cigarettes, uncomplicated; F25.9 Schizoaffective disorder, unspecified; F43.10 Post-traumatic stress disorder, unspecified; F34.1 Dysthymic disorder; Z21 Asymptomatic human immunodeficiency virus [HIV] infection status; G47.00 Insomnia, unspecified; I10 Essential (primary) hypertension; B19.10 Unspecified viral hepatitis B without hepatic coma; Z91.19 Patient's noncompliance with other medical treatment and regimen; Z91.5 Personal history of self-harm; Z90.2 Acquired absence of lung [part of]
CPT/HCPCS: 36415; 71046-TC-FY; 80053; 85027; 86593